=== PATIENT | female | born 1935 | race Caucasian/White ===

== ENCOUNTER → 2016-08-05 | Outpatient (CLI) | payer MEDICARE ==
[2016-08-05 13:14] LABS: Vitamin B12 949 pg/mL
== END | disposition home or self-care (01) ==
LOC: LABWHC1 11:14
PROVIDERS: ATTEND Psychiatry & Neurology Neurology
DX: R41.3 Other amnesia (principal)
CPT/HCPCS: 36415; 82607; 82746; 84439; 84443; 84481

== ENCOUNTER → 2016-10-10 | Outpatient (CLI) | payer MEDICARE | END | disposition home or self-care (01) | LOC: LABWHC1 14:52 | PROVIDERS: ATTEND Internal Medicine Cardiovascular Disease | DX: I48.0 Paroxysmal atrial fibrillation (principal) | CPT/HCPCS: 36415; 84443; 84450; 84460 ==

== ENCOUNTER → 2016-11-18 | Outpatient (CLI) | payer MEDICARE | END | disposition home or self-care (01) | LOC: LABWHC1 12:39 | PROVIDERS: ATTEND Internal Medicine Cardiovascular Disease | DX: E03.2 Hypothyroidism due to medicaments and other exogenous substances (principal) | CPT/HCPCS: 36415; 84439; 84481 ==

== ENCOUNTER → 2016-11-21 | Outpatient (CLI) | payer MEDICARE ==
--- NOTE | 2016-11-21 13:31 | XR ---
EXAMINATION TYPE: 3 views lumbar spine. AP view pelvis DATE OF EXAM: 11/21/2016 12:42 PM COMPARISON: Right hip radiographs 05/13/2016 HISTORY: 81-year-old female segmental and somatic dysfunction, pain from fall 3 months ago, pelvic an d lumbar pain. FINDINGS: Lumbar spine: There is mild levoconvex rotary curvature of the lumbar spine. Hypertrophic facet arthropathy mid to lower lumbar spine with grade 1 retrolistheses at L1-L2, L2-L3 and grade 1 anterolisthesis at L5-S1. Mild scattered endplate spondylosis. There is mild superior endplate compression deformity of L1 with a 15% overall height loss. Dense vascular calcifications within the aorta. Cholecystectomy clips. Pelvis: Mild marginal spurring at the right hip. Mild superolateral hip joint space narrowing at the left hip with suggestion of subchondral sclerosis and cystic change. Degenerative changes at the pubic symphy sis. SI joints appear symmetric and intact. There is osteopenia without displaced fracture. IMPRESSION: 1. Lumbar spine: Degenerated levoconvex rotary curvature of the lumbar spine. 2. Lumbar spine: Marked hypertrophic facet arthropathy mid to lower lumbar spine with grade 1 retroli stheses at L1-L2 and L2-L3 and grade 1 anterolisthesis at L5-S1. 3. Lumbar spine: Mild superior endplate compression deformity of L1 with 15% overall height loss. Thi s is age indeterminate and should be correlated clinically. 4. Pelvis: Mild left greater than right hip osteonecrosis. 5. Pelvis: Osteopenia without acute osseous abnormality seen.
== END | disposition home or self-care (01) ==
LOC: RADXRMAIN 12:25
PROVIDERS: ATTEND Chiropractor
DX: M43.17 Spondylolisthesis, lumbosacral region (principal); M46.96 Unspecified inflammatory spondylopathy, lumbar region; M85.88 Other specified disorders of bone density and structure, other site; M87.88 Other osteonecrosis, other site
CPT/HCPCS: 72100; 72170

== ENCOUNTER 2016-11-24 13:58 | Observation (INO) | payer MEDICARE ==
[~2016-11-24 13:58] MED LIST: AMIODARONE 100 MG TAB PO SCH
[2016-11-24] MEDS ORDERED: SODIUM CHLORIDE 0.9% 1,000 ML IV STA (14:18)
[2016-11-24] MEDS ORDERED: MORPHINE SULFATE 4 MG/ML SYRINGE IVP STA (14:18)
[2016-11-24] MEDS ORDERED: RX INFO: IV CONTRAST WAS GIVEN 1 EACH MISC MISCELLANE PRN (14:19)
--- NOTE | 2016-11-24 14:25 | ED ---
Abdominal Pain HPI - General Chief Complaint: Abdominal Pain Stated Complaint: Abd Pain Time Seen by Provider: 11/24/16 14:10 Source: patient, EMS Mode of arrival: EMS Limitations: no limitations - History of Present Illness Initial Comments: Patient is an 81-year-old female with history of A. fib on Eliquis and Digoxin, diabetes, hypertension, hyperlipidemia presenting with acute abdominal pain. Patient states about an hour prior to arrival she had upper abdominal pain that radiated into her chest. Patient rates pain 10 out of 10. She did not take anything for the pain. She tried to lay down but pain persisted. called EMS for transport. Patient denies ever having this pain before. She denies any associated fever or chills. Denies headache cough congestion. She denies any back pain or shortness breath. She denies nausea or vomiting or diarrhea. Patient states for the past. Patient having harder stools than normal. Patient still passing gas. Denies any dysuria. - Related Data Home Medications Medication Instructions Recorded Confirmed Latanoprost Ophth [Xalatan 0.005%] 1 drop BOTH EYES HS 06/17/14 11/24/16 Multivitamins, Thera [Multivitamin 1 tab PO DAILY 06/17/14 11/24/16 (formulary)] ALPRAZolam [Xanax] 0.25 mg PO HS PRN 05/13/15 11/24/16 Metoprolol Succinate [Toprol XL] 50 mg PO QAM 05/13/15 11/24/16 Nitroglycerin Sl Tabs [Nitrostat] 0.4 mg SUBLINGUAL Q5M PRN 05/13/15 11/24/16 Furosemide [Lasix] 40 mg PO DAILY 05/26/15 11/24/16 Spironolactone [Aldactone] 25 mg PO DAILY 05/26/15 11/24/16 rOPINIRole HCL [Requip] 2 mg PO BID 05/26/15 11/24/16 Amiodarone HCl [Pacerone] 100 mg PO DAILY 11/24/16 11/24/16 Apixaban [Eliquis] 2.5 mg PO BID 11/24/16 11/24/16 Cyanocobalamin (Vitamin B-12) 1,000 mcg PO SUTUTH 11/24/16 11/24/16 [Vitamin B-12] Cyanocobalamin (Vitamin B-12) 500 mcg PO SA 11/24/16 11/24/16 [Vitamin B-12] Fluticasone Nasal [place] [Flonase 2 spr EA NOSTRIL DAILY PRN 11/24/16 11/24/16 Nasal [place]] L.acidoph,Paracasei, B.lactis 1 cap PO HS 11/24/16 11/24/16 [Probiotic] Levothyroxine Sodium [Synthroid] 125 mcg PO DAILY 11/24/16 11/24/16 Rivastigmine Tartrate [Exelon] 6 mg PO BID 11/24/16 11/24/16 diphenhydrAMINE [Benadryl] 50 mg PO HS 11/24/16 11/24/16 Previous Rx's Medication Instructions Recorded Aspirin 81 mg PO DAILY chew 04/04/15 Sertraline [Zoloft] 100 mg PO QAM #30 tab 04/04/15 Allergies Allergy/AdvReac Type Severity Reaction Status Date / Time latex Allergy Swelling Verified 11/24/16 14:26 ELASTIC Allergy BINDS/CUTS Uncoded 11/24/16 14:02 INTO SKIN Review of Systems ROS Statement: Those systems with pertinent positive or pertinent negative responses have been documented in the HPI. Constitutional: No fever and no chills. HENT: No congestion, no rhinorrhea and no sore throat. Eyes: No discharge and no redness. Respiratory: No cough and no shortness of breath. Cardiovascular: +chest pain and no palpitations. Gastrointestinal: No nausea, no vomiting, +abdominal pain and no diarrhea. Genitourinary: No dysuria and no hematuria. Musculoskeletal: No back pain and no arthralgias. Skin: No pallor and no rash. Neurological: No dizziness and No headaches. ROS Other: All systems not noted in ROS Statement are negative. Past Medical History Past Medical History: Atrial Fibrillation, Coronary Artery Disease (CAD), Cancer , Dementia, Diabetes Mellitus, Eye Disorder, GI Bleed, Hyperlipidemia, Hypertension, Osteoarthritis (OA), Pulmonary Embolus (PE), Thyroid Disorder Additional Past Medical History / Comment(s): 03-26-15 ADMITTED WITH AFIB RVR. OTHER HX: AUG/2012 PULMONARY EMBOLISM, Feb UPPER GI BLEED TAKEN OFF COUMADIN, 1997 R breast ca TX WITH RADIATION. GLAUCOMA BILATERAL EYES, RLS. History of Any Multi-Drug Resistant Organisms: None Reported Past Surgical History: Breast Surgery, Cholecystectomy, Heart Catheterization, Orthopedic Surgery Additional Past Surgical History / Comment(s): CURRENTYLY HAVING DIFFICULTY SWALLOWING,1973 AND 1976 GANGLION CYST REMOVED L WRIST, 1976 R FOOT BONE SPUR REMOVAL, left heart catheterization in 2012 with 30-40% stenosis of the RCA and LAD, transesophageal echogram 2006, right breast biopsy 2009, cataract surgery 2009, last colonoscopy was in 2011. Past Anesthesia/Blood Transfusion Reactions: No Reported Reaction Additional Past Anesthesia/Blood Transfusion Reaction / Comment(s): PT HAD BLOOD TRANSFUSION WHEN SHE HAD A UPPER GI BLEED IN 2012. Past Psychological History: Depression Additional Psychological History / Comment(s): CURRENTLY STAYING WITH SISTER. PT LIVES IN OWN HOME WITH . PT IS NORMALLY ACTIVE AND INDEPENDENT. SHE TAKES CARE OF HERSELF AND HER HOME AND DRIVES A CAR. Smoking Status: Former smoker Past Alcohol Use History: None Reported Additional Past Alcohol Use History / Comment(s): started smoking at age 23 smoked 1/2 ppd quit 1983 Past Drug Use History: None Reported - Past Family History Father Family Medical History: Coronary Artery Disease (CAD), Myocardial Infarction (MS ) Additional Family Medical History / Comment(s): FATHER AT AGE 72 OF MS. Mother Family Medical History: Cancer Additional Family Medical History / Comment(s): MOTHER AT AGE 76 OF UTERINE CANCER. Sister(s) Family Medical History: GERD/Reflux Brother(s) Family Medical History: Diabetes Mellitus Daughter(s) Family Medical History: No Reported History Son(s) Family Medical History: No Reported History General Exam - General Exam Comments Initial Comments: Constitutional: Patient appears well-developed and well-nourished. Mild distress. Head: Normocephalic and atraumatic. Eyes: Conjunctivae and EOM are normal. Right eye exhibits no discharge. Left eye exhibits no discharge. No scleral icterus. Neck: Normal range of motion. Neck supple. Cardiovascular: Normal rate and regular rhythm. No murmur heard. Pulmonary/Chest: Effort normal and breath sounds normal. No respiratory distress. No wheezes. Abdominal: Soft. +distension. Mild epigastric tenderness. There is no rebound and no guarding. Musculoskeletal: Normal range of motion. No edema or tenderness. Neurological: Patient alert and oriented to person, place, and time. Skin: Skin is warm and dry. Not diaphoretic. Nursing notes and vitals reviewed. Limitations: no limitations Course Vital Signs 11/24/16 11/24/16 11/24/16 14:02 15:16 15:44 Temperature 99.6 F Pulse Rate 61 68 57 L Respiratory 20 16 16 Rate Blood Pressure 181/77 198/79 147/67 O2 Sat by Pulse 99 96 94 L Oximetry 11/24/16 16:59 Temperature Pulse Rate 59 L Respiratory 16 Rate Blood Pressure 162/70 O2 Sat by Pulse 100 Oximetry - Reevaluation(s) Reevaluation #1: 11/24/16 16:08 Notified of patient's having worsening substernal nonradiating chest pain. Patient is having nausea without vomiting. We'll order a repeat EKG. Patient' s abdominal workup unremarkable more concerning for ACS. Reevaluation #2: 11/24/16 16:17 EKG done showing no ST or T-wave changes. Rate 59. Sinus bradycardia. No ST-T wave changes. CO internal normal . QRS interval normal. QTc duration 496ms. Medical Decision Making - Medical Decision Making Patient's a 81-year-old female with history of diabetes, A. fib, hypertension, hyperlipidemia presenting with chest pain/abdominal pain. EKG unremarkable 2. Troponin negative. Patient was given aspirin. Abdominal workup unremarkable with negative CBC, CMP, lipase, lactic acid, abd x-ray and abdominal CT. Patient with intermittent episodic chest pain. Patient with a high HEART score. Patient was resting comfortably in bed. Course of stay improved. Denies pain. Discussed physical exam and diagnostic tests with patient. Questions answered and patient is agreeable to staying in the hospital. Discussed H&P and pertinent diagnostic tests with admitting physician who agrees with plan and accepts admission of patient. - Lab Data Result diagrams: 11/24/16 14:25 11/24/16 14:25 Lab Results 11/24/16 11/24/16 11/24/16 Range/Units 14:25 14:25 14:25 WBC 10.6 (3.8-10.6) k/uL RBC 4.09 (3.80-5.40) m/uL Hgb 11.8 (11.4-16.0) gm/dL Hct 36.0 (34.0-46.0) % MCV 88.0 (80.0-100.0) fL MCH 28.9 (25.0-35.0) pg MCHC 32.8 (31.0-37.0) g/dL RDW 17.9 H (11.5-15.5) % Plt Count 300 (150-450) k/uL Neutrophils % 87 % Lymphocytes % 8 % Monocytes % 3 % Eosinophils % 1 % Basophils % 0 % Neutrophils # 9.3 H (1.3-7.7) k/uL Lymphocytes # 0.8 L (1.0-4.8) k/uL Monocytes # 0.3 (0-1.0) k/uL Eosinophils # 0.1 (0-0.7) k/uL Basophils # 0.1 (0-0.2) k/uL Anisocytosis Slight PT (9.0-12.0) sec INR (<1.1) APTT (22.0-30.0) sec Sodium 142 (137-145) mmol/L Potassium 4.2 (3.5-5.1) mmol/L Chloride 107 (98-107) mmol/L Carbon Dioxide 26 (22-30) mmol/L Anion Gap 9 mmol/L BUN 31 H (7-17) mg/dL Creatinine 1.33 H (0.52-1.04) mg/dL Est GFR (MDRD) Af Amer 47 (>60 ml/min/1.73 sqM) Est GFR (MDRD) Non-Af 38 (>60 ml/min/1.73 sqM) Glucose 130 H (74-99) mg/dL Plasma Lactic Acid Paulo (0.7-2.0) mmol/L Calcium 8.9 (8.4-10.2) mg/dL Magnesium 2.2 (1.6-2.3) mg/dL Total Bilirubin 0.7 (0.2-1.3) mg/dL AST 73 H (14-36) U/L ALT 46 (9-52) U/L Alkaline Phosphatase 123 (38-126) U/L Troponin I (0.000-0.034) ng/mL Total Protein 7.5 (6.3-8.2) g/dL Albumin 4.3 (3.5-5.0) g/dL Lipase 181 (23-300) U/L Urine Color Urine Appearance (Clear) Urine pH (5.0-8.0) Ur Specific [place] (1.001-1.035) Urine Protein (Negative) Urine Glucose (UA) (Negative) Urine Ketones (Negative) Urine Blood (Negative) Urine Nitrite (Negative) Urine Bilirubin (Negative) Urine Urobilinogen (<2.0) mg/dL Ur Leukocyte Esterase (Negative) Urine WBC (0-5) /hpf Hyaline Casts (0-2) /lpf Urine Mucus (None) /hpf Digoxin <0.4 ng/mL Blood Type O Positive Blood Type Recheck No Antibody Screen NEGATIVE Spec Expiration Date 11/27/2016 - 232411/24/16 11/24/16 11/24/16 Range/Units 14:25 14:25 14:25 WBC (3.8-10.6) k/uL RBC (3.80-5.40) m/uL Hgb (11.4-16.0) gm/dL Hct (34.0-46.0) % MCV (80.0-100.0) fL MCH (25.0-35.0) pg MCHC (31.0-37.0) g/dL RDW (11.5-15.5) % Plt Count (150-450) k/uL Neutrophils % % Lymphocytes % % Monocytes % % Eosinophils % % Basophils % % Neutrophils # (1.3-7.7) k/uL Lymphocytes # (1.0-4.8) k/uL Monocytes # (0-1.0) k/uL Eosinophils # (0-0.7) k/uL Basophils # (0-0.2) k/uL Anisocytosis PT 10.7 (9.0-12.0) sec INR 1.1 (<1.1) APTT 22.9 (22.0-30.0) sec Sodium (137-145) mmol/L Potassium (3.5-5.1) mmol/L Chloride (98-107) mmol/L Carbon Dioxide (22-30) mmol/L Anion Gap mmol/L BUN (7-17) mg/dL Creatinine (0.52-1.04) mg/dL Est GFR (MDRD) Af Amer (>60 ml/min/1.73 sqM) Est GFR (MDRD) Non-Af (>60 ml/min/1.73 sqM) Glucose (74-99) mg/dL Plasma Lactic Acid Paulo 1.1 (0.7-2.0) mmol/L Calcium (8.4-10.2) mg/dL Magnesium (1.6-2.3) mg/dL Total Bilirubin (0.2-1.3) mg/dL AST (14-36) U/L ALT (9-52) U/L Alkaline Phosphatase (38-126) U/L Troponin I <0.012 (0.000-0.034) ng/mL Total Protein (6.3-8.2) g/dL Albumin (3.5-5.0) g/dL Lipase (23-300) U/L Urine Color Urine Appearance (Clear) Urine pH (5.0-8.0) Ur Specific [place] (1.001-1.035) Urine Protein (Negative) Urine Glucose (UA) (Negative) Urine Ketones (Negative) Urine Blood (Negative) Urine Nitrite (Negative) Urine Bilirubin (Negative) Urine Urobilinogen (<2.0) mg/dL Ur Leukocyte Esterase (Negative) Urine WBC (0-5) /hpf Hyaline Casts (0-2) /lpf Urine Mucus (None) /hpf Digoxin ng/mL Blood Type Blood Type Recheck Antibody Screen Spec Expiration Date 11/24/16 Range/Units 15:15 WBC (3.8-10.6) k/uL RBC (3.80-5.40) m/uL Hgb (11.4-16.0) gm/dL Hct (34.0-46.0) % MCV (80.0-100.0) fL MCH (25.0-35.0) pg MCHC (31.0-37.0) g/dL RDW (11.5-15.5) % Plt Count (150-450) k/uL Neutrophils % % Lymphocytes % % Monocytes % % Eosinophils % % Basophils % % Neutrophils # (1.3-7.7) k/uL Lymphocytes # (1.0-4.8) k/uL Monocytes # (0-1.0) k/uL Eosinophils # (0-0.7) k/uL Basophils # (0-0.2) k/uL Anisocytosis PT (9.0-12.0) sec INR (<1.1) APTT (22.0-30.0) sec Sodium (137-145) mmol/L Potassium (3.5-5.1) mmol/L Chloride (98-107) mmol/L Carbon Dioxide (22-30) mmol/L Anion Gap mmol/L BUN (7-17) mg/dL Creatinine (0.52-1.04) mg/dL Est GFR (MDRD) Af Amer (>60 ml/min/1.73 sqM) Est GFR (MDRD) Non-Af (>60 ml/min/1.73 sqM) Glucose (74-99) mg/dL Plasma Lactic Acid Paulo (0.7-2.0) mmol/L Calcium (8.4-10.2) mg/dL Magnesium (1.6-2.3) mg/dL Total Bilirubin (0.2-1.3) mg/dL AST (14-36) U/L ALT (9-52) U/L Alkaline Phosphatase (38-126) U/L Troponin I (0.000-0.034) ng/mL Total Protein (6.3-8.2) g/dL Albumin (3.5-5.0) g/dL Lipase (23-300) U/L Urine Color Yellow Urine Appearance Clear (Clear) Urine pH 6.5 (5.0-8.0) Ur Specific [place] 1.012 (1.001-1.035) Urine Protein Negative (Negative) Urine Glucose (UA) Negative (Negative) Urine Ketones Negative (Negative) Urine Blood Negative (Negative) Urine Nitrite Negative (Negative) Urine Bilirubin Negative (Negative) Urine Urobilinogen <2.0 (<2.0) mg/dL Ur Leukocyte Esterase Small H (Negative) Urine WBC 8 H (0-5) /hpf Hyaline Casts 1 (0-2) /lpf Urine Mucus Rare H (None) /hpf Digoxin ng/mL Blood Type Blood Type Recheck Antibody Screen Spec Expiration Date 11/24/16 14:24 [address]R. No ST-T wave changes. CO internal normal . QRS interval normal. QTc duration 511ms Disposition Clinical Impression: Chest pain, Abdominal pain Disposition: ADMITTED IP TO THIS HOSP Condition: Good
[2016-11-24 14:41] LABS: Anisocytosis Slight; Basophils # (A) 0.1 k/uL (0-0.2); Basophils % (A) 0 %; CH 28.5; CHCM 32.5; Eosinophils # (A) 0.1 k/uL (0-0.7); Eosinophils % (A) 1 %; HDW 2.98; HGB 11.8 gm/dL (11.4-16.0); Luc # (Auto) 0.13; Luc % (Auto) 1; Lymphocytes # (A) 0.8 k/uL (1.0-4.8); Lymphocytes % (A) 8 %; MCH 28.9 pg (25.0-35.0); MCHC 32.8 g/dL (31.0-37.0); Mean Platelet Volume 7.9; Monocytes # (A) 0.3 k/uL (0-1.0); Monocytes % (A) 3 %; Neutrophils # (A) 9.3 k/uL (1.3-7.7); Neutrophils % (A) 87 %; RBC 4.09 m/uL (3.80-5.40); RDW 17.9 % (11.5-15.5); WBC 10.6 k/uL (3.8-10.6); WBC (Perox) 10.87
[2016-11-24 14:49] LABS: INR 1.1 (<1.1); Partial Thromboplastin Time 22.9 sec (22.0-30.0); Prothrombin Time 10.7 sec (9.0-12.0)
[2016-11-24 14:56] LABS: ALT 46 U/L (9-52); AST 73 U/L (14-36); Alkaline Phosphatase 123 U/L (38-126); Anion Gap 9 mmol/L; Blood Urea Nitrogen 31 mg/dL (7-17); Calcium 8.9 mg/dL (8.4-10.2); Carbon Dioxide 26 mmol/L (22-30); Chloride 107 mmol/L (98-107); Digoxin <0.4 ng/mL; Glucose 130 mg/dL (74-99); Magnesium 2.2 mg/dL (1.6-2.3); Non-African American GFR(MDRD) 38 (>60 ml/min/1.73 sqM); Potassium 4.2 mmol/L (3.5-5.1); Sodium 142 mmol/L (137-145); Total Bilirubin 0.7 mg/dL (0.2-1.3); Total Protein 7.5 g/dL (6.3-8.2)
--- NOTE | 2016-11-24 15:18 | XR ---
EXAMINATION TYPE: XR abdomen acute w cxr DATE OF EXAM: 11/24/2016 3:00 PM COMPARISON: NONE HISTORY: Pain nausea TECHNIQUE: Acute abdominal series with upright and supine views of the abdomen and supplemented with a frontal chest. FINDINGS: No suspicious infiltrates are evident. No free air is under the diaphragm. Normal colonic b owel gas is present. Psoas margins are normal. Organomegaly is not evident. Cholecystectomy clips are present. Scoliosis within the lumbar spine. IMPRESSION: 1. No suspicious changes acute abdominal series
[2016-11-24 15:25] LABS: Appearance,Urine Clear (Clear); Bilirubin,Urine Negative (Negative); Glucose,Urine (UA) Negative (Negative); Ketones,Urine Negative (Negative); Leukocyte Esterase,Urine Small (Negative); Mucus,Urine Rare /hpf; Nitrite,Urine Negative (Negative); PH, Urine 6.5 (5.0-8.0); Particle Count 774; Protein,Urine Negative (Negative); Specific Gravity,Urine 1.012 (1.001-1.035); UA Billing (MACRO vs. MICRO) MICRO; Urobilinogen,Urine <2.0 mg/dL (<2.0); WBC,Urine 8 /hpf (0-5)
[2016-11-24] MEDS ORDERED: METOCLOPRAMIDE 5 MG/ML 2 ML VIAL IVP STA (15:53)
[2016-11-24] MEDS ORDERED: diphenhydrAMINE 50 MG/ML 1 ML VIAL IVP STA (15:53)
--- NOTE | 2016-11-24 16:06 | CT ---
EXAMINATION TYPE: CT abdomen pelvis wo con DATE OF EXAM: 11/24/2016 3:09 PM COMPARISON: NONE INDICATION: PT STATES OF ABDOMINAL PAIN. DLP: 942.0 mGycm, Automated exposure control for dose reduction was used. CONTRAST: 0 mL of Omnipaque 300. Study performed without Oral Contrast TECHNIQUE: Axial images were obtained from above the diaphragm to the pubic rami in the axial plane a t 5 mm thick sections. Reconstructed images are reviewed on the computer in the coronal plane. FINDINGS: Limited CT sections are obtained the lung bases. The lung bases are clear. Coronary artery calcific ation is noted. Vascular calcifications within the distal aorta. Hiatal hernia is present. CT ABDOMEN: Liver: Normal Spleen: Normal Pancreas: Normal Adrenal glands: The adrenal glands are normal. Gallbladder: Surgically absent. The common bile duct entering the head of the pancreas is prominent m easuring 1.5 cm. Normal is less than 1.0 cm. No obstructing stone is identified. No pancreatic duct d ilatation is evident. Kidneys: No masses are evident. No hydronephrosis is present. No cysts are present. There is malro tation of the right kidney. Aorta: Vascular calcification is within the aorta. Inferior vena cava: Normal. CT PELVIS: Diverticular changes are within the ascending and descending colon. Study is without oral contrast li miting the evaluation. Sigmoid colon contains multiple diverticuli. Appendix: Not visualized. No suspicious tubular structures inflammatory changes or secondary signs fo r acute appendicitis are evident. Urinary bladder: Normal. Genitourinary structures: Uterus and ovaries are unremarkable. No free fluid is within the pelvis. Osseous structures: No suspicious lytic or sclerotic lesions. Facet degenerative changes are within t he lumbar spine. IMPRESSIONS: 1. Prominent common bile duct. 2. Diverticulosis without acute diverticulitis.
[2016-11-24] MEDS ORDERED: ASPIRIN 81 MG CHEW PO STA (16:07)
[2016-11-24] MEDS ORDERED: ACETAMINOPHEN TAB 325 MG TAB PO PRN (16:24)
[2016-11-24] MEDS ORDERED: IBUPROFEN 400 MG TAB PO PRN (16:24)
[2016-11-24] MEDS ORDERED: NALOXONE 0.4 MG/ML 1 ML VIAL IV PRN (16:24)
[2016-11-24] MEDS ORDERED: MORPHINE SULFATE 4 MG/ML SYRINGE IV PRN (16:24)
[2016-11-24] MEDS ORDERED: ALPRAZolam 0.25 MG TAB PO PRN (16:27)
[2016-11-24] MEDS ORDERED: NITROGLYCERIN SL TABS 0.4 MG TAB SUBLINGUAL PRN (16:27)
[2016-11-24] MEDS: SPIRONOLACTONE 25 MG TAB PO SCH (19:08)
[2016-11-24] MEDS: SERTRALINE 100 MG TAB PO SCH (19:08)
[2016-11-24] MEDS: METOPROLOL SUCCINATE (ER) 50 MG TAB.ER.24H PO SCH (19:09)
[2016-11-24] MEDS ORDERED: diphenhydrAMINE 50 MG CAP PO SCH (21:00)
[2016-11-24] MEDS: APIXABAN 2.5 MG TABLET PO SCH (21:10)
[2016-11-24 23:43] VITALS: RESP 18
[2016-11-25] MEDS ORDERED: LEVOTHYROXINE 125 MCG TAB PO SCH (06:30)
[2016-11-25 07:31] LABS: Glucose,Whole Blood 110 mg/dL (75-99)
[2016-11-25 08:42] LABS: Anisocytosis Slight; Basophils % (A) 0 %; CH 28.7; CHCM 31.5; Eosinophils # (A) 0.1 k/uL (0-0.7); Eosinophils % (A) 1 %; HDW 2.89; HGB 10.3 gm/dL (11.4-16.0); Hypochromasia Slight; Luc # (Auto) 0.11; Luc % (Auto) 2; Lymphocytes % (A) 13 %; MCH 28.7 pg (25.0-35.0); MCHC 31.3 g/dL (31.0-37.0); MCV 91.5 fL (80.0-100.0); Mean Platelet Volume 8.2; Monocytes # (A) 0.3 k/uL (0-1.0); Monocytes % (A) 4 %; Neutrophils # (A) 5.7 k/uL (1.3-7.7); Neutrophils % (A) 80 %; RBC 3.61 m/uL (3.80-5.40); RDW 17.9 % (11.5-15.5); WBC 7.2 k/uL (3.8-10.6)
[2016-11-25 08:51] LABS: Calcium 8.7 mg/dL (8.4-10.2); Potassium 4.2 mmol/L (3.5-5.1)
[2016-11-25] MEDS ORDERED: FUROSEMIDE 40 MG TAB PO SCH (09:00)
[2016-11-25] MEDS ORDERED: AMIODARONE 100 MG TAB PO SCH (09:00)
[2016-11-25] MEDS ORDERED: ASPIRIN 81 MG CHEW PO SCH (09:00)
--- NOTE | 2016-11-25 09:51 | P.CRDCN ---
History of Present Illness Consult date: 11/25/16 History of present illness: This is a 81-year-old female This is a 81-year-old female with history of mild coronary artery disease, moderate mitral regurgitation and severe tricuspid regurgitation who was admitted to the hospital now with complaints of severe pain that started in the lower abdomen with some radiation to the epigastrium and chest. Patient has had some hip problem on the right side and uses a walker for walking. She thought that pain could be related to her hip problem but continued to have this abdominal pain. Finally patient came to the hospital. The pain apparently was continuous. She was mildly nauseated but no vomiting or diarrhea. Pain lasts about 2-3 hours. She was treated in the emergency room with improvement of pain. Since then patient has been stable. Her EKG showed sinus rhythm with nonspecific ST-T changes which are chronic. Cardiac enzymes are negative. Computed tomography scan of the abdomen was done which showed some diverticulosis. Her creatinine was 1.3 and admission and went up to 1.5 today. This could be related to contrast used for computed tomography scan. Close monitoring of the creatinine to be constricted. Her hemoglobin also dropped, but could be from dilution. One of the liver enzymes are slightly high. From cardiac standpoint. Patient doesn't need any further evaluation at this time. If her general condition is stable and his creatinine stable, patient could be discharged home. Follow-up with Dr. Huber as an outpatient. Review of Systems As per the chart Past Medical History Past Medical History: Atrial Fibrillation, Coronary Artery Disease (CAD), Cancer , Dementia, Diabetes Mellitus, Eye Disorder, GI Bleed, Hyperlipidemia, Hypertension, Osteoarthritis (OA), Pulmonary Embolus (PE), Thyroid Disorder Additional Past Medical History / Comment(s): 03-26-15 ADMITTED WITH AFIB RVR. OTHER HX: AUG/SEP. 2012 PULMONARY EMBOLISM, Feb UPPER GI BLEED TAKEN OFF COUMADIN, 1997 R breast ca TX WITH RADIATION. GLAUCOMA BILATERAL EYES, RLS. hypothyroid. History of Any Multi-Drug Resistant Organisms: None Reported Past Surgical History: Breast Surgery, Cholecystectomy, Heart Catheterization, Orthopedic Surgery Additional Past Surgical History / Comment(s): CURRENTYLY HAVING DIFFICULTY SWALLOWING,1973 AND 1976 GANGLION CYST REMOVED L WRIST, 1976 R FOOT BONE SPUR REMOVAL, left heart catheterization in 2012 with 30-40% stenosis of the RCA and LAD, transesophageal echogram 2006, right breast biopsy 2009, cataract surgery 2009, last colonoscopy was in 2011. Past Anesthesia/Blood Transfusion Reactions: No Reported Reaction Additional Past Anesthesia/Blood Transfusion Reaction / Comment(s): PT HAD BLOOD TRANSFUSION WHEN SHE HAD A UPPER GI BLEED IN 2012. Past Psychological History: Depression Additional Psychological History / Comment(s): CURRENTLY STAYING WITH SISTER. PT LIVES IN OWN HOME WITH . PT IS NORMALLY ACTIVE AND INDEPENDENT. SHE TAKES CARE OF HERSELF AND HER HOME AND DRIVES A CAR. Smoking Status: Former smoker Past Alcohol Use History: None Reported Additional Past Alcohol Use History / Comment(s): started smoking at age 23 smoked 1/2 ppd quit 1983 Past Drug Use History: None Reported - Past Family History Father Family Medical History: Coronary Artery Disease (CAD), Myocardial Infarction ([place] ) Additional Family Medical History / Comment(s): FATHER AT AGE 72 OF [place]. Mother Family Medical History: Cancer Additional Family Medical History / Comment(s): MOTHER AT AGE 76 OF UTERINE CANCER. Sister(s) Family Medical History: GERD/Reflux Brother(s) Family Medical History: Diabetes Mellitus Daughter(s) Family Medical History: No Reported History Son(s) Family Medical History: No Reported History Medications and Allergies Home Medications Medication Instructions Recorded Confirmed Type Latanoprost Ophth [Xalatan 0.005%] 1 drop BOTH EYES HS 06/17/14 11/24/16 History Multivitamins, Thera [Multivitamin 1 tab PO DAILY 06/17/14 11/24/16 History (formulary)] ALPRAZolam [Xanax] 0.25 mg PO HS PRN 05/13/15 11/24/16 History Metoprolol Succinate [Toprol XL] 50 mg PO QAM 05/13/15 11/24/16 History Nitroglycerin Sl Tabs [Nitrostat] 0.4 mg SUBLINGUAL Q5M PRN 05/13/15 11/24/16 History Furosemide [Lasix] 40 mg PO DAILY 05/26/15 11/24/16 History Spironolactone [Aldactone] 25 mg PO DAILY 05/26/15 11/24/16 History rOPINIRole HCL [Requip] 2 mg PO BID 05/26/15 11/24/16 History Amiodarone HCl [Pacerone] 100 mg PO DAILY 11/24/16 11/24/16 History Apixaban [Eliquis] 2.5 mg PO BID 11/24/16 11/24/16 History Cyanocobalamin (Vitamin B-12) 1,000 mcg PO SUTUTH 11/24/16 11/24/16 History [Vitamin B-12] Cyanocobalamin (Vitamin B-12) 500 mcg PO SA 11/24/16 11/24/16 History [Vitamin B-12] Fluticasone Nasal [place] [Flonase 2 spr EA NOSTRIL DAILY PRN 11/24/16 11/24/16 History Nasal [place]] L.acidoph,Paracasei, B.lactis 1 cap PO HS 11/24/16 11/24/16 History [Probiotic] Levothyroxine Sodium [Synthroid] 125 mcg PO DAILY 11/24/16 11/24/16 History Rivastigmine Tartrate [Exelon] 6 mg PO BID 11/24/16 11/24/16 History diphenhydrAMINE [Benadryl] 50 mg PO HS 11/24/16 11/24/16 History Allergies Allergy/AdvReac Type Severity Reaction Status Date / Time ELASTIC Allergy BINDS/CUTS Uncoded 11/24/16 14:02 INTO SKIN Physical Exam Vitals: Vital Signs Temp Pulse Pulse Pulse Resp BP BP 11/25/16 08:00 98.2 F 69 18 11/25/16 03:07 98.6 F 70 18 140/63 11/24/16 23:39 98.3 F 69 18 105/48 11/24/16 20:00 97.5 F L 65 16 146/64 11/24/16 18:44 66 18 11/24/16 17:32 97.7 F 66 18 11/24/16 16:59 59 L 16 162/70 BP Pulse Ox 11/25/16 08:00 154/51 95 11/25/16 03:07 94 L 11/24/16 23:39 97 11/24/16 20:00 94 L 11/24/16 18:44 11/24/16 17:32 142/80 98 11/24/16 16:59 100 Intake and Output 11/24/16 11/25/16 11/25/16 22:59 06:59 14:59 Intake Total 240 Balance 240 Intake: Oral 240 Other: Voiding Method Toilet Toilet Toilet # Voids 1 Weight 67 kg GENERAL EXAM: Patient is alert and oriented and doesn't appear to be in any acute distress. Poor memory HEENT: Normocephalic. Normal reaction of pupils, equal size, normal range of extraocular motion. No erythema or exudates in the throat. NECK: No masses, no nuchal rigidity. CHEST: No chest wall deformity. LUNGS: Equal air entry with no crackles or wheeze. HEART: S1 and S2 normal with no audible mumurs or gallops. Regular rhythm, femorals equal on both sides.. ABDOMEN: No hepatosplenomegaly, normal bowel sounds, no guarding or rigidity. SKIN: No rashes CENTRAL NERVOUS SYSTEM: No focal deficits. EXTREMITIES: No cyanosis, clubbing or edema. Results 11/25/16 02:54 11/25/16 02:54 Cardiac Enzymes 11/24/16 11/25/16 Range/Units 20:37 02:54 Troponin I <0.012 <0.012 (0.000-0.034) ng/mL CBC 11/25/16 Range/Units 02:54 WBC 7.2 (3.8-10.6) k/uL RBC 3.61 L (3.80-5.40) m/uL Hgb 10.3 L (11.4-16.0) gm/dL Hct 33.0 L (34.0-46.0) % Plt Count 255 (150-450) k/uL Comprehensive Metabolic Panel 11/25/16 Range/Units 02:54 Sodium 141 (137-145) mmol/L Potassium 4.2 (3.5-5.1) mmol/L Chloride 107 (98-107) mmol/L Carbon Dioxide 26 (22-30) mmol/L BUN 30 H (7-17) mg/dL Creatinine 1.54 H (0.52-1.04) mg/dL Glucose 87 (74-99) mg/dL Calcium 8.7 (8.4-10.2) mg/dL Current Medications Generic Name Dose Route Start Last Admin Trade Name Freq PRN Reason Stop Dose Admin Acetaminophen 650 mg 11/24/16 16:24 Tylenol Tab PO Q6HR PRN Mild Pain or Fever > 100.5 Alprazolam 0.25 mg 11/24/16 16:27 Xanax PO HS PRN Anxiety Amiodarone HCl 100 mg 11/25/16 09:00 Cordarone PO DAILY [facility] Apixaban 2.5 mg 11/24/16 21:00 11/24/16 21:10 Eliquis PO 2.5 mg BID DONNA Administration Aspirin 81 mg 11/25/16 09:00 Aspirin PO DAILY [facility] Diphenhydramine HCl 50 mg 11/24/16 21:00 11/24/16 21:10 Benadryl PO 50 mg HS DONNA Administration Furosemide 40 mg 11/25/16 09:00 Lasix PO DAILY DONNA Ibuprofen 400 mg 11/24/16 16:24 Motrin PO Q6HR PRN Mild Pain or Fever > 100.5 Levothyroxine Sodium 125 mcg 11/25/16 06:30 11/25/16 06:06 Synthroid PO 125 mcg DAILY@0630 [facility] Administration Metoprolol Succinate 50 mg 11/24/16 17:30 11/24/16 19:09 Toprol Xl PO Not Given QAM [facility] Miscellaneous Information 1 each 11/24/16 14:19 11/24/16 16:07 Rx Info: Iv Contrast Was Given MISCELLANE 11/26/16 14:20 1 each DAILY PRN Administration Per Protocol Morphine Sulfate 4 mg 11/24/16 16:24 Morphine Sulfate (Inj) IV Q4HR PRN Severe Pain Naloxone HCl 0.2 mg 11/24/16 16:24 Narcan IV Q2M PRN Opioid Reversal Nitroglycerin 0.4 mg 11/24/16 16:27 Nitrostat SUBLINGUAL Q5M PRN Chest Pain Ropinirole HCl 2 mg 11/24/16 21:00 11/24/16 21:10 Requip PO 2 mg BID [facility] Administration Sertraline HCl 100 mg 11/24/16 17:30 11/24/16 19:08 Zoloft PO Not Given QAM [facility] Spironolactone 25 mg 11/24/16 17:30 11/24/16 19:08 Aldactone PO Not Given DAILY DONNA Intake and Output 11/24/16 11/25/16 11/25/16 22:59 06:59 14:59 Intake Total 240 Balance 240 Intake: Oral 240 Other: Voiding Method Toilet Toilet Toilet # Voids 1 Weight 67 kg 11/25/16 02:54 11/25/16 02:54 EKG Interpretations (text) Sinus rhythm with chronic ST-T changes Assessment and Plan (1) Valvular heart disease Status: Acute (2) Abdominal pain Status: Acute (3) Atrial fibrillation Status: Acute (4) Diabetes mellitus Status: Acute Plan: This patient is admitted with mostly abdominal pain. Cardiac enzymes and EKGs are not suggestive of an acute coronary syndrome. Her creatinine has gone up and that could be related to contrast use for computed tomography scan. This needs to be closely monitored. Follow-up with Dr. Huber upon discharge
[2016-11-25] MEDS: METOPROLOL SUCCINATE (ER) 50 MG TAB.ER.24H PO SCH (10:27)
[2016-11-25] MEDS: SPIRONOLACTONE 25 MG TAB PO SCH (10:28)
[2016-11-25] MEDS: SERTRALINE 100 MG TAB PO SCH (10:28)
[2016-11-25] MEDS: APIXABAN 2.5 MG TABLET PO SCH (10:28)
[2016-11-25] MEDS ORDERED: SODIUM CHLORIDE 0.9% 250 ML IV ONE (12:34)
[2016-11-25 13:10] VITALS: BP 117/60; PULSE 59; TEMP 97.5
--- NOTE | 2016-11-25 15:33 | P.HPIM ---
History of Present Illness H&P Date: 11/25/16 Chief Complaint: Abdomen and chest pain This is a medical H&P and discharge summary combined: Patient is a 81-year-old female, patient of Dr. Strange in the outpatient setting, with medical history significant for atrial fibrillation, diabetes mellitus type 2, chronic kidney disease, coronary artery disease, bilateral pulmonary emboli, hypertension, hypothyroidism, hyperlipidemia, vascular dementia, and breast cancer status post lumpectomy as well as radiation therapy. Patient presented to the emergency department with complaints of acute upper abdominal pain radiating into her chest associated with nausea but no vomiting. No history of recent illness, fevers, chills, shortness of breath, back pain, or diarrhea. Patient reports occasional constipation. Abdominal workup essentially negative with a negative CBC, CMP, lipase, lactic acid, abdominal x-ray, abdominal CT. Troponins negative 3. EKG without evidence of acute ischemia. Patient was admitted for observation with consult to cardiology service. Patient was evaluated by cardiology who didn't feel that patient needed any further cardiac workup. Upon examination, patient denies any abdominal pain. Patient denies nausea, vomiting, chills, shortness of breath, or chest pain. Patient is urinating without difficulty. Afebrile. Vital signs stable. Creatinine this morning 1.54 from 1.33 yesterday. Past Medical History Past Medical History: Atrial Fibrillation, Coronary Artery Disease (CAD), Cancer , Dementia, Diabetes Mellitus, Eye Disorder, GI Bleed, Hyperlipidemia, Hypertension, Osteoarthritis (OA), Pulmonary Embolus (PE), Thyroid Disorder Additional Past Medical History / Comment(s): 03-26-15 ADMITTED WITH AFIB RVR. OTHER HX: AUG/2012 PULMONARY EMBOLISM, Feb UPPER GI BLEED TAKEN OFF COUMADIN, 1997 R breast ca TX WITH RADIATION. GLAUCOMA BILATERAL EYES, RLS. hypothyroid. History of Any Multi-Drug Resistant Organisms: None Reported Past Surgical History: Breast Surgery, Cholecystectomy, Heart Catheterization, Orthopedic Surgery Additional Past Surgical History / Comment(s): CURRENTYLY HAVING DIFFICULTY SWALLOWING,1973 AND 1976 GANGLION CYST REMOVED L WRIST, 1976 R FOOT BONE SPUR REMOVAL, left heart catheterization in 2012 with 30-40% stenosis of the RCA and LAD, transesophageal echogram 2006, right breast biopsy 2009, cataract surgery 2009, last colonoscopy was in 2011. Past Anesthesia/Blood Transfusion Reactions: No Reported Reaction Additional Past Anesthesia/Blood Transfusion Reaction / Comment(s): PT HAD BLOOD TRANSFUSION WHEN SHE HAD A UPPER GI BLEED IN 2012. Past Psychological History: Depression Additional Psychological History / Comment(s): CURRENTLY STAYING WITH SISTER. PT LIVES IN OWN HOME WITH . PT IS NORMALLY ACTIVE AND INDEPENDENT. SHE TAKES CARE OF HERSELF AND HER HOME AND DRIVES A CAR. Smoking Status: Former smoker Past Alcohol Use History: None Reported Additional Past Alcohol Use History / Comment(s): started smoking at age 23 smoked 1/2 ppd quit 1983 Past Drug Use History: None Reported - Past Family History Father Family Medical History: Coronary Artery Disease (CAD), Myocardial Infarction ([place] ) Additional Family Medical History / Comment(s): FATHER AT AGE 72 OF [place]. Mother Family Medical History: Cancer Additional Family Medical History / Comment(s): MOTHER AT AGE 76 OF UTERINE CANCER. Sister(s) Family Medical History: GERD/Reflux Brother(s) Family Medical History: Diabetes Mellitus Daughter(s) Family Medical History: No Reported History Son(s) Family Medical History: No Reported History Medications and Allergies Home Medications Medication Instructions Recorded Confirmed Type Latanoprost Ophth [Xalatan 0.005%] 1 drop BOTH EYES HS 06/17/14 11/24/16 History Multivitamins, Thera [Multivitamin 1 tab PO DAILY 06/17/14 11/24/16 History (formulary)] ALPRAZolam [Xanax] 0.25 mg PO HS PRN 05/13/15 11/24/16 History Metoprolol Succinate [Toprol XL] 50 mg PO QAM 05/13/15 11/24/16 History Nitroglycerin Sl Tabs [Nitrostat] 0.4 mg SUBLINGUAL Q5M PRN 05/13/15 11/24/16 History Furosemide [Lasix] 40 mg PO DAILY 05/26/15 11/24/16 History Spironolactone [Aldactone] 25 mg PO DAILY 05/26/15 11/24/16 History rOPINIRole HCL [Requip] 2 mg PO BID 05/26/15 11/24/16 History Amiodarone HCl [Pacerone] 100 mg PO DAILY 11/24/16 11/24/16 History Apixaban [Eliquis] 2.5 mg PO BID 11/24/16 11/24/16 History Cyanocobalamin (Vitamin B-12) 1,000 mcg PO SUTUTH 11/24/16 11/24/16 History [Vitamin B-12] Cyanocobalamin (Vitamin B-12) 500 mcg PO SA 11/24/16 11/24/16 History [Vitamin B-12] Fluticasone Nasal [place] [Flonase 2 spr EA NOSTRIL DAILY PRN 11/24/16 11/24/16 History Nasal [place]] L.acidoph,Paracasei, B.lactis 1 cap PO HS 11/24/16 11/24/16 History [Probiotic] Levothyroxine Sodium [Synthroid] 125 mcg PO DAILY 11/24/16 11/24/16 History Rivastigmine Tartrate [Exelon] 6 mg PO BID 11/24/16 11/24/16 History diphenhydrAMINE [Benadryl] 50 mg PO HS 11/24/16 11/24/16 History Allergies Allergy/AdvReac Type Severity Reaction Status Date / Time ELASTIC Allergy BINDS/CUTS Uncoded 11/24/16 14:02 INTO SKIN Physical Exam Vitals: Vital Signs Temp Pulse Pulse Pulse Resp BP BP 11/25/16 12:00 97.5 F L 59 L 18 117/60 11/25/16 08:00 98.2 F 69 18 11/25/16 03:07 98.6 F 70 18 140/63 11/24/16 23:39 98.3 F 69 18 105/48 11/24/16 20:00 97.5 F L 65 16 146/64 11/24/16 18:44 66 18 11/24/16 17:32 97.7 F 66 18 11/24/16 16:59 59 L 16 162/70 BP Pulse Ox 11/25/16 12:00 94 L 11/25/16 08:00 154/51 95 11/25/16 03:07 94 L 11/24/16 23:39 97 11/24/16 20:00 94 L 11/24/16 18:44 11/24/16 17:32 142/80 98 11/24/16 16:59 100 Intake and Output 11/24/16 11/25/16 11/25/16 22:59 06:59 14:59 Intake Total 240 355 Balance 240 355 Intake: Oral 240 355 Other: Voiding Method Toilet Toilet Toilet # Voids 1 Weight 67 kg GENERAL: Pt awake and alert, well-appearing, well-nourished, and in no acute distress. HEAD: Atraumatic, normocephalic. EYES: Pupils equal, round, and reactive to light, extraocular movements intact, sclera anicteric, conjunctiva are normal. ENT: Oropharynx clear without exudates. Moist mucous membranes. NECK: Supple without lymphadenopathy or JVD. LUNGS: Breath sounds clear to auscultation bilaterally. No wheezes, rales, or rhonchi. HEART: Heart S1, S2, no S3 or S4. Regular rate and rhythm. No murmurs, rubs or gallops. ABDOMEN: Soft, nontender, nondistended, normoactive bowel sounds. No guarding, no rebound. No masses or organomegaly appreciated. EXTREMITIES: Palpable peripheral pulses. No edema. No calf tenderness. NEUROLOGICAL: Pt oriented x 3. No focal deficits noted. Strength and sensation grossly intact. PSYCH: Normal mood, normal affect. SKIN: Warm, dry, intact. Normal turgor. No rashes or lesions. Results CBC & Chem 7: 11/25/16 02:54 11/25/16 02:54 Labs: Abnormal Lab Results - Last 24 Hours (Table) 11/25/16 11/25/16 11/25/16 Range/Units 02:54 02:54 07:30 RBC 3.61 L (3.80-5.40) m/uL Hgb 10.3 L (11.4-16.0) gm/dL Hct 33.0 L (34.0-46.0) % RDW 17.9 H (11.5-15.5) % BUN 30 H (7-17) mg/dL Creatinine 1.54 H (0.52-1.04) mg/dL POC Glucose (mg/dL) 110 H (75-99) mg/dL CT scan - abdomen: report reviewed CT scan - pelvis: report reviewed Thrombosis Risk Factor Assmnt - DVT/VTE Prophylaxis DVT/VTE Prophylaxis: Pharmacologic Prophylaxis ordered - Choose All That Apply Any of the Below Risk Factors Present?: Yes Each Factor Represents 1 point: Obesity (BMI >25) Other Risk Factors: Yes Each Risk Factor Represents 3 Points: Age 75 years or older Thrombosis Risk Factor Assessment Total Risk Factor Score: 4 Thrombosis Risk Factor Assessment Level: Moderate Risk Assessment and Plan Plan: Impression: 1. Abdominal pain, acute, present on admission, resolved. Cardiac origin ruled out. CT of abdomen and pelvis negative. 2. Chronic renal failure, stage III. 3. Persistent atrial fibrillation. 4. Anemia. Hemoglobin 10.3. Suspect secondary to dilution. 5. Diabetes mellitus type 2. 6. Coronary artery disease. 7. Vascular dementia. 8. Hyperlipidemia. 9. Hypertension. 10. History of pulmonary embolus. 11. Hypothyroidism. 12. History of upper GI bleed. 13. History of right breast cancer treated with radiation. Plan: Patient will receive a 250 mL fluid bolus and be discharged to home. Patient will follow-up with Dr. Strange in 2-3 days for repeat BMP and possible consult to gastrointestinal service. Patient will resume home medications. Discharge diagnoses: 1. Abdominal pain, acute, present on admission, resolved. Cardiac origin ruled out. CT of abdomen and pelvis negative. 2. Chronic renal failure, stage III. 3. Persistent atrial fibrillation. 4. Anemia. Hemoglobin 10.3. Suspect secondary to dilution. 5. Diabetes mellitus type 2. 6. Coronary artery disease. 7. Vascular dementia. 8. Hyperlipidemia. 9. Hypertension. 10. History of pulmonary embolus. 11. Hypothyroidism. 12. History of upper GI bleed. 13. History of right breast cancer treated with radiation. The above impression and plan have been discussed and directed by Dr. Strange. Halie ST acting as scribe for Dr. Strange.
== END 2016-11-25 14:30 | disposition home or self-care (01) ==
LOC: EC 13:58 → 3OBS 16:24
PROVIDERS: ADMIT Family Medicine; ATTEND Family Medicine
DX: R10.10 Upper abdominal pain, unspecified (principal); R07.9 Chest pain, unspecified; G25.81 Restless legs syndrome; E78.5 Hyperlipidemia, unspecified; F01.50 Vascular dementia, unspecified severity, without behavioral disturbance, psychotic disturbance, mood disturbance, and anxiety; E11.22 Type 2 diabetes mellitus with diabetic chronic kidney disease; I12.9 Hypertensive chronic kidney disease with stage 1 through stage 4 chronic kidney disease, or unspecified chronic kidney disease; N18.3 Chronic kidney disease, stage 3 (moderate); E03.9 Hypothyroidism, unspecified; I38 Endocarditis, valve unspecified; I48.1 Persistent atrial fibrillation; D64.9 Anemia, unspecified; H40.9 Unspecified glaucoma; F32.9 Major depressive disorder, single episode, unspecified; I25.10 Atherosclerotic heart disease of native coronary artery without angina pectoris; M19.90 Unspecified osteoarthritis, unspecified site; Z91.040 Latex allergy status; Z79.01 Long term (current) use of anticoagulants; Z79.899 Other long term (current) drug therapy; Z91.048 Other nonmedicinal substance allergy status; Z85.3 Personal history of malignant neoplasm of breast; Z86.711 Personal history of pulmonary embolism; Z92.3 Personal history of irradiation; Z87.891 Personal history of nicotine dependence; Z82.49 Family history of ischemic heart disease and other diseases of the circulatory system; Z80.49 Family history of malignant neoplasm of other genital organs
CPT/HCPCS: 96374; 96375 ×2; 96361 ×3; 99285; 36415; 93005; 86900; 86901; 80053; 80048; 80162; 83605; 83690; 83735; 84484 ×2; 85025 ×2; 85610; 85730; 86850; 81001; 87086; 74022; 74176; G0378 ×2; J2270; J1200; J2765

== ENCOUNTER 2017-01-20 20:16 | Emergency (ER) | payer MEDICARE ==
--- NOTE | 2017-01-20 20:45 | ED ---
Back Pain [facility] - General Chief Complaint: Back Pain/Injury Stated Complaint: Chronic Back Pain Time Seen by Provider: 01/20/17 20:22 Source: patient, family, RN notes reviewed Limitations: no limitations - History of Present Illness Initial Comments: 81-year-old female presents to the emergency department with a chief complaint of back pain. Patient has had this back pain for the past few months. Patient states that it has been getting worse and she saw her doctor and he scheduled an MRI for 2 weeks from today. Patient states that when she lays or states he has no back pain is only when she is doing activities. Patient states there is no radiation down the legs. Patient states laying in the bed she has no pain. Patient states is no loss of bowel or bladder function. Patient denies any saddle anesthesia. Patient states that she just cannot wait 2 weeks to have a MRI so she thought that maybe we can do it for her today. Patient is in no pain. Patient is taking no home pain medication. Patient states that she is not currently having any other symptoms. Patient denies any recent fever, chills , shortness of breath, chest pain, abdominal pain, nausea vomiting, numbness or tingling, dysuria or hematuria, constipation or diarrhea, headaches or visual changes, or any other current symptoms. - Related Data Home Medications Medication Instructions Recorded Confirmed Latanoprost Ophth [Xalatan 0.005%] 1 drop BOTH EYES HS 06/17/14 11/24/16 Multivitamins, Thera [Multivitamin 1 tab PO DAILY 06/17/14 11/24/16 (formulary)] ALPRAZolam [Xanax] 0.25 mg PO HS PRN 05/13/15 11/24/16 Metoprolol Succinate [Toprol XL] 50 mg PO QAM 05/13/15 11/24/16 Nitroglycerin Sl Tabs [Nitrostat] 0.4 mg SUBLINGUAL Q5M PRN 05/13/15 11/24/16 Furosemide [Lasix] 40 mg PO DAILY 05/26/15 11/24/16 Spironolactone [Aldactone] 25 mg PO DAILY 05/26/15 11/24/16 rOPINIRole HCL [Requip] 2 mg PO BID 05/26/15 11/24/16 Amiodarone HCl [Pacerone] 100 mg PO DAILY 11/24/16 11/24/16 Apixaban [Eliquis] 2.5 mg PO BID 11/24/16 11/24/16 Cyanocobalamin (Vitamin B-12) 1,000 mcg PO SUTUTH 11/24/16 11/24/16 [Vitamin B-12] Cyanocobalamin (Vitamin B-12) 500 mcg PO SA 11/24/16 11/24/16 [Vitamin B-12] Fluticasone Nasal [place] [Flonase 2 spr EA NOSTRIL DAILY PRN 11/24/16 11/24/16 Nasal [place]] L.acidoph,Paracasei, B.lactis 1 cap PO HS 11/24/16 11/24/16 [Probiotic] Levothyroxine Sodium [Synthroid] 125 mcg PO DAILY 11/24/16 11/24/16 Rivastigmine Tartrate [Exelon] 6 mg PO BID 11/24/16 11/24/16 diphenhydrAMINE [Benadryl] 50 mg PO HS 11/24/16 11/24/16 Memantine HCl [Namenda Xr] 28 mg PO DAILY 01/20/17 01/20/17 Simvastatin [Zocor] 20 mg PO HS 01/20/17 01/20/17 Previous Rx's Medication Instructions Recorded Aspirin 81 mg PO DAILY chew 04/04/15 Sertraline [Zoloft] 100 mg PO QAM #30 tab 04/04/15 traMADol HCl [Ultram] 50 mg PO Q4H PRN #20 tab 01/20/17 Allergies Allergy/AdvReac Type Severity Reaction Status Date / Time ELASTIC Allergy BINDS/CUTS Uncoded 01/20/17 20:34 INTO SKIN Review of Systems ROS Statement: Those systems with pertinent positive or pertinent negative responses have been documented in the HPI. ROS Other: All systems not noted in ROS Statement are negative. Past Medical History Past Medical History: Atrial Fibrillation, Coronary Artery Disease (CAD), Cancer , Dementia, Diabetes Mellitus, Eye Disorder, GI Bleed, Hyperlipidemia, Hypertension, Osteoarthritis (OA), Pulmonary Embolus (PE), Thyroid Disorder Additional Past Medical History / Comment(s): 03-26-15 ADMITTED WITH AFIB RVR. OTHER HX: AUG/2012 PULMONARY EMBOLISM, Feb UPPER GI BLEED TAKEN OFF COUMADIN, 1997 R breast ca TX WITH RADIATION. GLAUCOMA BILATERAL EYES, RLS. hypothyroid. History of Any Multi-Drug Resistant Organisms: None Reported Past Surgical History: Breast Surgery, Cholecystectomy, Heart Catheterization, Orthopedic Surgery Additional Past Surgical History / Comment(s): CURRENTYLY HAVING DIFFICULTY SWALLOWING,1973 AND 1976 GANGLION CYST REMOVED L WRIST, 1976 R FOOT BONE SPUR REMOVAL, left heart catheterization in 2012 with 30-40% stenosis of the RCA and LAD, transesophageal echogram 2006, right breast biopsy 2009, cataract surgery 2009, last colonoscopy was in 2011. Past Anesthesia/Blood Transfusion Reactions: No Reported Reaction Additional Past Anesthesia/Blood Transfusion Reaction / Comment(s): PT HAD BLOOD TRANSFUSION WHEN SHE HAD A UPPER GI BLEED IN 2013. Past Psychological History: Depression Smoking Status: Former smoker Past Alcohol Use History: None Reported Past Drug Use History: None Reported - Past Family History Father Family Medical History: Coronary Artery Disease (CAD), Myocardial Infarction ([place] ) Additional Family Medical History / Comment(s): FATHER AT AGE 72 OF [place]. Mother Family Medical History: Cancer Additional Family Medical History / Comment(s): MOTHER AT AGE 76 OF UTERINE CANCER. Sister(s) Family Medical History: GERD/Reflux Brother(s) Family Medical History: Diabetes Mellitus Daughter(s) Family Medical History: No Reported History Son(s) Family Medical History: No Reported History General Exam Limitations: no limitations General appearance: alert, in no apparent distress ENT exam: Present: normal exam, mucous membranes moist Neck exam: Present: normal inspection. Absent: tenderness, meningismus, lymphadenopathy Respiratory exam: Present: normal lung sounds bilaterally. Absent: respiratory distress, wheezes, rales, rhonchi, stridor Cardiovascular Exam: Present: regular rate, normal rhythm, normal heart sounds. Absent: systolic murmur, diastolic murmur, rubs, gallop, clicks GI/Abdominal exam: Present: soft, normal bowel sounds. Absent: distended, tenderness, guarding, rebound, rigid Extremities exam: Present: normal inspection, full ROM, normal capillary refill. Absent: tenderness, pedal edema, joint swelling, calf tenderness Back exam: Present: normal inspection, other (negative Bilateral straight leg raise). Absent: full ROM (Pain with limited range of motion) Neurological exam: Present: alert, oriented X3 Psychiatric exam: Present: normal affect, normal mood Skin exam: Present: warm, dry, intact, normal color. Absent: rash Course Vital Signs 01/20/17 01/20/17 20:30 21:28 Temperature 97.4 F L Pulse Rate 102 H 101 H Respiratory 18 18 Rate Blood Pressure 134/71 120/67 O2 Sat by Pulse 95 94 L Oximetry Medical Decision Making - Medical Decision Making 9-year-old female presents emergency Department chief complaint of low back pain. Patient does suffer from pain are multiple times. Patient denies any increase or change in her pain is just unable to wait for her MRI per the patient. At this time patient is feeling better and patient is still pain free. This time we will the patient for tramadol for home. We did discuss CAT scan with the T12 compression fracture. We did discuss Motrin and Tylenol as long with medications and we did give him follow-up dorsal on Monday. We did discuss return parameters all questions. Patient stated they understood and all questions have been answered. They will be discharged home. Disposition Clinical Impression: T12 compression fracture Disposition: HOME SELF-CARE Condition: Stable Instructions: Chronic Back Pain (ED) Additional Instructions: Please use medication as discussed. Please follow up with family doctor if symptoms have not improved over the next two days. Please return to the emergency room if your symptoms increase or worsen or for any other concerns. Prescriptions: traMADol HCl [Ultram] 50 mg PO Q4H PRN #20 tab PRN Reason: Pain Referrals: Tariq Strange DO [Primary Care Provider] - 1-2 days Time of Disposition: 21:45
[2017-01-20 20:51] VITALS: RESP 18
--- NOTE | 2017-01-20 21:10 | CT ---
EXAMINATION TYPE: CT lumbar spine wo con DATE OF EXAM: 01/20/2017 8:57 PM COMPARISON: CT abdomen 11/24/2016. HISTORY: Lower back pain after multiple fall injurys. CT DLP: 689.2 mGycm Automated exposure control for dose reduction was used. Unenhanced CT of the lumbar spine was performed. Bone and soft tissue window settings are submitted as well as coronal and sagittal reconstructions. The vertebra have normal alignment.. Disc spaces are fairly normal for age. There is mild depression of the superior endplate of T12 and L1 with 10-15% loss of height. This is consistent with relatively acute fractures. There is hypertrophic facet arthropathy throughout the lumbar spine. Abdominal aort a is atheromatous. There is no paraspinal mass. IMPRESSION: There is a compression fracture of L1 that is stable compared to old CT scan of 11/24/2016. There is a new mild compression fracture of T12 compared to old exam.
[2017-01-20 21:29] VITALS: BP 120/67
[2017-01-20] MEDS ORDERED: methylPREDNISolone SOD SUCCI 125 MG/2 ML VIAL IV STA (21:47)
[2017-01-20 22:33] VITALS: PULSE 100; TEMP 97.9
== END 2017-01-20 22:00 | disposition home or self-care (01) ==
LOC: EC 20:16
DX: M48.54XA Collapsed vertebra, not elsewhere classified, thoracic region, initial encounter for fracture (principal); I25.10 Atherosclerotic heart disease of native coronary artery without angina pectoris; E11.9 Type 2 diabetes mellitus without complications; E78.5 Hyperlipidemia, unspecified; I48.91 Unspecified atrial fibrillation; F03.90 Unspecified dementia, unspecified severity, without behavioral disturbance, psychotic disturbance, mood disturbance, and anxiety; I10 Essential (primary) hypertension; M19.90 Unspecified osteoarthritis, unspecified site; E07.9 Disorder of thyroid, unspecified; Z87.891 Personal history of nicotine dependence; Z79.01 Long term (current) use of anticoagulants; Z79.899 Other long term (current) drug therapy; Z91.048 Other nonmedicinal substance allergy status; Z86.711 Personal history of pulmonary embolism; Z85.3 Personal history of malignant neoplasm of breast; Z95.818 Presence of other cardiac implants and grafts
CPT/HCPCS: 72131; 99284; 96374; J2930

== ENCOUNTER 2017-02-05 10:08 | Inpatient (IN) | payer MEDICARE ==
[2017-02-05] MEDS ORDERED: HYDROmorphone 1 MG/ML 1 ML SYRINGE IVP STA (10:24)
[2017-02-05] MEDS ORDERED: ORPHENADRINE 30 MG/ML 2 ML VIAL IVP STA (10:25)
--- NOTE | 2017-02-05 10:28 | ED ---
Back Pain HPI - General Chief Complaint: Back Pain/Injury Stated Complaint: Back Pain Time Seen by Provider: 02/05/17 10:08 Source: patient, EMS, RN notes reviewed, old records reviewed Limitations: no limitations - History of Present Illness Initial Comments: This is female history of known compression fracture of L1 mild compression fracture of T12 who came in due to severe low back pain. She stated it was 10/ 10. Sharp and radiating around her waistline. It does not really down. She denies any urinary or fecal incontinence any new injury she doesn't history of falls in the past but nothing recently. She denies any abdominal pain any weakness or lower extremities no other complaints other than pain. She did see his orthopedic back surgeon 2 days ago she scheduled to have surgery on the of this month. No other reports of complaints at this time. MD Complaint: back pain - Related Data Home Medications Medication Instructions Recorded Confirmed Latanoprost Ophth [Xalatan 0.005%] 1 drop BOTH EYES HS 06/17/14 01/20/17 Multivitamins, Thera [Multivitamin 1 tab PO DAILY 06/17/14 01/20/17 (formulary)] ALPRAZolam [Xanax] 0.25 mg PO HS PRN 05/13/15 01/20/17 Metoprolol Succinate [Toprol XL] 50 mg PO QAM 05/13/15 01/20/17 Nitroglycerin Sl Tabs [Nitrostat] 0.4 mg SUBLINGUAL Q5M PRN 05/13/15 01/20/17 Furosemide [Lasix] 40 mg PO DAILY 05/26/15 01/20/17 Spironolactone [Aldactone] 25 mg PO DAILY 05/26/15 01/20/17 rOPINIRole HCL [Requip] 2 mg PO HS 05/26/15 01/20/17 Amiodarone HCl [Pacerone] 100 mg PO DAILY 11/24/16 01/20/17 Apixaban [Eliquis] 2.5 mg PO BID 11/24/16 01/20/17 Cyanocobalamin (Vitamin B-12) 1,000 mcg PO SUTUTH 11/24/16 01/20/17 [Vitamin B-12] Cyanocobalamin (Vitamin B-12) 500 mcg PO SA 11/24/16 01/20/17 [Vitamin B-12] Fluticasone Nasal [place] [Flonase 2 spr EA NOSTRIL DAILY PRN 11/24/16 01/20/17 Nasal [place]] L.acidoph,Paracasei, B.lactis 1 cap PO HS 11/24/16 01/20/17 [Probiotic] Levothyroxine Sodium [Synthroid] 125 mcg PO DAILY 11/24/16 01/20/17 Rivastigmine Tartrate [Exelon] 6 mg PO BID 11/24/16 01/20/17 diphenhydrAMINE [Benadryl] 50 mg PO HS 11/24/16 01/20/17 Memantine HCl [Namenda Xr] 28 mg PO DAILY 01/20/17 01/20/17 Simvastatin [Zocor] 20 mg PO HS 01/20/17 01/20/17 Previous Rx's Medication Instructions Recorded Aspirin 81 mg PO DAILY chew 04/04/15 Sertraline [Zoloft] 100 mg PO QAM #30 tab 04/04/15 traMADol HCl [Ultram] 50 mg PO Q4H PRN #20 tab 01/20/17 Allergies Allergy/AdvReac Type Severity Reaction Status Date / Time ELASTIC Allergy BINDS/CUTS Uncoded 02/05/17 10:20 INTO SKIN Review of Systems ROS Statement: Those systems with pertinent positive or pertinent negative responses have been documented in the HPI. ROS Other: All systems not noted in ROS Statement are negative. Past Medical History Past Medical History: Atrial Fibrillation, Coronary Artery Disease (CAD), Cancer , Dementia, Diabetes Mellitus, Eye Disorder, GI Bleed, Hyperlipidemia, Hypertension, Osteoarthritis (OA), Pulmonary Embolus (PE), Thyroid Disorder Additional Past Medical History / Comment(s): 03-26-15 ADMITTED WITH AFIB RVR. OTHER HX: AUG/2012 PULMONARY EMBOLISM, Feb UPPER GI BLEED TAKEN OFF COUMADIN, 1997 R breast ca TX WITH RADIATION. GLAUCOMA BILATERAL EYES, RLS. hypothyroid. History of Any Multi-Drug Resistant Organisms: None Reported Past Surgical History: Breast Surgery, Cholecystectomy, Heart Catheterization, Orthopedic Surgery Additional Past Surgical History / Comment(s): CURRENTYLY HAVING DIFFICULTY SWALLOWING,1973 AND 1976 GANGLION CYST REMOVED L WRIST, 1976 R FOOT BONE SPUR REMOVAL, left heart catheterization in 2012 with 30-40% stenosis of the RCA and LAD, transesophageal echogram 2006, right breast biopsy 2009, cataract surgery 2009, last colonoscopy was in 2011. Past Anesthesia/Blood Transfusion Reactions: No Reported Reaction Additional Past Anesthesia/Blood Transfusion Reaction / Comment(s): PT HAD BLOOD TRANSFUSION WHEN SHE HAD A UPPER GI BLEED IN 2012. Past Psychological History: Depression Smoking Status: Former smoker Past Alcohol Use History: None Reported Past Drug Use History: None Reported - Past Family History Father Family Medical History: Coronary Artery Disease (CAD), Myocardial Infarction ([place] ) Additional Family Medical History / Comment(s): FATHER AT AGE 72 [place]. Mother Family Medical History: Cancer Additional Family Medical History / Comment(s): MOTHER AT AGE 76 OF UTERINE CANCER. Sister(s) Family Medical History: GERD/Reflux Brother(s) Family Medical History: Diabetes Mellitus Daughter(s) Family Medical History: No Reported History Son(s) Family Medical History: No Reported History General Exam - General Exam Comments Initial Comments: This is a well-developed well-nourished awake alert oriented 3 female Limitations: no limitations General appearance: alert, anxious, in distress Head exam: Present: atraumatic, normocephalic, normal inspection Eye exam: Present: normal appearance, PERRL, EOMI. Absent: scleral icterus, conjunctival injection, periorbital swelling ENT exam: Present: normal exam, mucous membranes moist Neck exam: Present: normal inspection. Absent: tenderness, meningismus, lymphadenopathy Respiratory exam: Present: normal lung sounds bilaterally. Absent: respiratory distress, wheezes, rales, rhonchi, stridor Cardiovascular Exam: Present: tachycardia. Absent: systolic murmur, diastolic murmur, rubs, gallop, clicks GI/Abdominal exam: Present: soft, normal bowel sounds. Absent: distended, tenderness, guarding, rebound, rigid Rectal exam: Present: deferred Extremities exam: Present: normal inspection, full ROM, normal capillary refill. Absent: tenderness, pedal edema, joint swelling, calf tenderness Back exam: Present: normal inspection, tenderness, paraspinal tenderness, vertebral tenderness (Tenderness to the T12-L1 region to palpation no step-off or crepitation. No increased local temperature.). Absent: full ROM, CVA tenderness (R), CVA tenderness (L) Neurological exam: Present: alert, oriented X3, CN II-XII intact Psychiatric exam: Present: normal affect, normal mood Skin exam: Present: warm, dry, intact, normal color. Absent: rash Course Vital Signs 02/05/17 02/05/17 02/05/17 10:10 11:22 12:00 Temperature 97.0 F L Pulse Rate 128 H 125 H 124 H Respiratory 18 16 18 Rate Blood Pressure 106/59 142/80 O2 Sat by Pulse 96 99 98 Oximetry 02/05/17 13:00 Temperature 97.6 F Pulse Rate 123 H Respiratory 18 Rate Blood Pressure 110/68 O2 Sat by Pulse 99 Oximetry - Reevaluation(s) Reevaluation #1: 02/05/17 13:31 Patient initially had improvement obtained after x-rays and movement she had increased pain she will accept the pain medication. Medical Decision Making - Medical Decision Making I did a long discussion with patient family members regarding findings. Patient has not any chest pain patient is noted to be somewhat tachycardic millimeter pulmonary on the basis of renal insufficiency the patient will be admitted for evaluation by cardiology and orthopedic surgery. - Lab Data Result diagrams: 02/05/17 11:20 Lab Results 02/05/17 02/05/17 02/05/17 Range/Units 10:30 10:45 11:20 PT 11.6 (9.0-12.0) sec INR 1.2 (<1.1) APTT 24.7 (22.0-30.0) sec Sodium (137-145) mmol/L Potassium (3.5-5.1) mmol/L Chloride (98-107) mmol/L Carbon Dioxide (22-30) mmol/L Anion Gap mmol/L BUN (7-17) mg/dL Creatinine (0.52-1.04) mg/dL Est GFR (MDRD) Af Amer (>60 ml/min/1.73 sqM) Est GFR (MDRD) Non-Af (>60 ml/min/1.73 sqM) Glucose (74-99) mg/dL Calcium (8.4-10.2) mg/dL Magnesium (1.6-2.3) mg/dL Total Bilirubin (0.2-1.3) mg/dL AST (14-36) U/L ALT (9-52) U/L Alkaline Phosphatase (38-126) U/L Total Creatine Kinase 53 (30-135) U/L CK-MB (CK-2) 2.0 (0.0-2.4) ng/mL CK-MB (CK-2) Rel Index 3.8 Troponin I 0.041 H* (0.000-0.034) ng/mL Total Protein (6.3-8.2) g/dL Albumin (3.5-5.0) g/dL Amylase (30-110) U/L Lipase (23-300) U/L Urine Color Yellow Urine Appearance Clear (Clear) Urine pH 5.0 (5.0-8.0) Ur Specific [place] 1.017 (1.001-1.035) Urine Protein Trace H (Negative) Urine Glucose (UA) Negative (Negative) Urine Ketones Negative (Negative) Urine Blood Negative (Negative) Urine Nitrite Negative (Negative) Urine Bilirubin Negative (Negative) Urine Urobilinogen <2.0 (<2.0) mg/dL Ur Leukocyte Esterase Large H (Negative) Urine RBC <1 (0-5) /hpf Urine WBC 22 H (0-5) /hpf Ur Squamous Epith Cells 1 (0-4) /hpf Urine Mucus Rare H (None) /hpf 02/05/17 Range/Units 11:20 PT (9.0-12.0) sec INR (<1.1) APTT (22.0-30.0) sec Sodium 138 (137-145) mmol/L Potassium 4.6 (3.5-5.1) mmol/L Chloride 106 (98-107) mmol/L Carbon Dioxide 19 L (22-30) mmol/L Anion Gap 13 mmol/L BUN 39 H (7-17) mg/dL Creatinine 1.65 H (0.52-1.04) mg/dL Est GFR (MDRD) Af Amer 36 (>60 ml/min/1.73 sqM) Est GFR (MDRD) Non-Af 30 (>60 ml/min/1.73 sqM) Glucose 154 H (74-99) mg/dL Calcium 8.7 (8.4-10.2) mg/dL Magnesium 2.3 (1.6-2.3) mg/dL Total Bilirubin 0.6 (0.2-1.3) mg/dL AST 25 (14-36) U/L ALT 26 (9-52) U/L Alkaline Phosphatase 114 (38-126) U/L Total Creatine Kinase (30-135) U/L CK-MB (CK-2) (0.0-2.4) ng/mL CK-MB (CK-2) Rel Index Troponin I (0.000-0.034) ng/mL Total Protein 7.1 (6.3-8.2) g/dL Albumin 4.1 (3.5-5.0) g/dL Amylase 50 (30-110) U/L Lipase 156 (23-300) U/L Urine Color Urine Appearance (Clear) Urine pH (5.0-8.0) Ur Specific [place] (1.001-1.035) Urine Protein (Negative) Urine Glucose (UA) (Negative) Urine Ketones (Negative) Urine Blood (Negative) Urine Nitrite (Negative) Urine Bilirubin (Negative) Urine Urobilinogen (<2.0) mg/dL Ur Leukocyte Esterase (Negative) Urine RBC (0-5) /hpf Urine WBC (0-5) /hpf Ur Squamous Epith Cells (0-4) /hpf Urine Mucus (None) /hpf - EKG Data -: EKG Interpreted by Md EKG shows normal: sinus rhythm Rate: tachycardia (Sinus tachycardia with a prescription AV block the rate was 124 DE interval 276 QRS 90 QT since QTC of 3 to this is compared with EKG dated 11/24/16 which at that time a rate of 63) - Radiology Data Radiology results: report reviewed (I did review the imaging and reports there is evidence of progression of the wedge fracture of T12.), image reviewed Disposition Clinical Impression: Intractable back pain, Elevated troponin, Tachycardia Disposition: ADMITTED IP TO THIS [facility] Condition: Stable Referrals: Tariq Strange DO [Primary Care Provider] - 1-2 days
[2017-02-05 10:58] LABS: INR 1.2 (<1.1); Partial Thromboplastin Time 24.7 sec (22.0-30.0); Prothrombin Time 11.6 sec (9.0-12.0)
[2017-02-05 11:11] LABS: Appearance,Urine Clear (Clear); Bilirubin,Urine Negative (Negative); Glucose,Urine (UA) Negative (Negative); Ketones,Urine Negative (Negative); Leukocyte Esterase,Urine Large (Negative); Mucus,Urine Rare /hpf; Nitrite,Urine Negative (Negative); Particle Count 2574; Protein,Urine Trace (Negative); RBC,Urine <1 /hpf (0-5); Specific Gravity,Urine 1.017 (1.001-1.035); Squamous Epithelial Cell,Urine 1 /hpf (0-4); UA Billing (MACRO vs. MICRO) MICRO; Urobilinogen,Urine <2.0 mg/dL (<2.0); WBC,Urine 22 /hpf (0-5)
[2017-02-05 11:39] LABS: Calcium 8.7 mg/dL (8.4-10.2); Magnesium 2.3 mg/dL (1.6-2.3); Potassium 4.6 mmol/L (3.5-5.1); Total Bilirubin 0.6 mg/dL (0.2-1.3); Total Protein 7.1 g/dL (6.3-8.2)
--- NOTE | 2017-02-05 12:03 | XR ---
EXAMINATION TYPE: XR abdomen 1V DATE OF EXAM: 02/05/2017 CLINICAL DATA: 81-year-old female with pain, [facility] COMPARISON: 11/24/2016 FINDINGS: Supine imaging limited for assessment of free intraperitoneal air. Cholecystectomy clips. Scattered [id number] stool. Air extends distally into the rectum. No dil ated small bowel loops. Some nonspecific calcifications in the left paramedian upper abdomen likely vascular. Mild degenerative change of the hips. Gentle levoconvex curvature of the lumbar spine with associated degenerative change IMPRESSION: Nonobstructive bowel gas pattern. Scattered [id number] stool.
[2017-02-05 12:08] LABS: Troponin I 0.041 ng/mL (0.000-0.034)
--- NOTE | 2017-02-05 12:08 | XR ---
EXAMINATION TYPE: XR lumbar spine 2 or 3V DATE OF EXAM: 02/05/2017 COMPARISON: 11/21/2016 and 01/18/2017 HISTORY: 81 year-old female chronic back pain, scheduled for kyphoplasty on January 2017 but pain has be come uncontrollable. TECHNIQUE: 3 views FINDINGS: T12 anterior compression deformity with 40% anterior height loss is noted to be new from 11/21/2016 an d progressed from 01/18/2017. Mild superior endplate compression deformity of L1 is stable. Grade 1 re trolisthesis at L1-L2 and L2-L3. No new vertebral compression collapse is seen. Hypertrophic facet ar thropathy mid to lower lumbar spine. Atherosclerotic calcifications throughout the abdominal aorta. T here is accentuated lower thoracic kyphosis and continued levoconvex curvature possibly due to pain/s pasm. IMPRESSION: 1. T12 anterior compression fracture progressed from 01/18/2017 now with 40% anterior height loss. No other new vertebral compression deformity. 2. Stable grade 1 retrolistheses at L1-L2 and L2-L3.
--- NOTE | 2017-02-05 13:59 | ED ---
Medical Decision Making - Lab Data Result diagrams: 02/05/17 11:20 Lab Results 02/05/17 02/05/17 02/05/17 Range/Units 10:30 10:45 11:20 PT 11.6 (9.0-12.0) sec INR 1.2 (<1.1) APTT 24.7 (22.0-30.0) sec Sodium (137-145) mmol/L Potassium (3.5-5.1) mmol/L Chloride (98-107) mmol/L Carbon Dioxide (22-30) mmol/L Anion Gap mmol/L BUN (7-17) mg/dL Creatinine (0.52-1.04) mg/dL Est GFR (MDRD) Af Amer (>60 ml/min/1.73 sqM) Est GFR (MDRD) Non-Af (>60 ml/min/1.73 sqM) Glucose (74-99) mg/dL Calcium (8.4-10.2) mg/dL Magnesium (1.6-2.3) mg/dL Total Bilirubin (0.2-1.3) mg/dL AST (14-36) U/L ALT (9-52) U/L Alkaline Phosphatase (38-126) U/L Total Creatine Kinase 53 (30-135) U/L CK-MB (CK-2) 2.0 (0.0-2.4) ng/mL CK-MB (CK-2) Rel Index 3.8 Troponin I 0.041 H* (0.000-0.034) ng/mL Total Protein (6.3-8.2) g/dL Albumin (3.5-5.0) g/dL Amylase (30-110) U/L Lipase (23-300) U/L Urine Color Yellow Urine Appearance Clear (Clear) Urine pH 5.0 (5.0-8.0) Ur Specific [place] 1.017 (1.001-1.035) Urine Protein Trace H (Negative) Urine Glucose (UA) Negative (Negative) Urine Ketones Negative (Negative) Urine Blood Negative (Negative) Urine Nitrite Negative (Negative) Urine Bilirubin Negative (Negative) Urine Urobilinogen <2.0 (<2.0) mg/dL Ur Leukocyte Esterase Large H (Negative) Urine RBC <1 (0-5) /hpf Urine WBC 22 H (0-5) /hpf Ur Squamous Epith Cells 1 (0-4) /hpf Urine Mucus Rare H (None) /hpf 02/05/17 Range/Units 11:20 PT (9.0-12.0) sec INR (<1.1) APTT (22.0-30.0) sec Sodium 138 (137-145) mmol/L Potassium 4.6 (3.5-5.1) mmol/L Chloride 106 (98-107) mmol/L Carbon Dioxide 19 L (22-30) mmol/L Anion Gap 13 mmol/L BUN 39 H (7-17) mg/dL Creatinine 1.65 H (0.52-1.04) mg/dL Est GFR (MDRD) Af Amer 36 (>60 ml/min/1.73 sqM) Est GFR (MDRD) Non-Af 30 (>60 ml/min/1.73 sqM) Glucose 154 H (74-99) mg/dL Calcium 8.7 (8.4-10.2) mg/dL Magnesium 2.3 (1.6-2.3) mg/dL Total Bilirubin 0.6 (0.2-1.3) mg/dL AST 25 (14-36) U/L ALT 26 (9-52) U/L Alkaline Phosphatase 114 (38-126) U/L Total Creatine Kinase (30-135) U/L CK-MB (CK-2) (0.0-2.4) ng/mL CK-MB (CK-2) Rel Index Troponin I (0.000-0.034) ng/mL Total Protein 7.1 (6.3-8.2) g/dL Albumin 4.1 (3.5-5.0) g/dL Amylase 50 (30-110) U/L Lipase 156 (23-300) U/L Urine Color Urine Appearance (Clear) Urine pH (5.0-8.0) Ur Specific [place] (1.001-1.035) Urine Protein (Negative) Urine Glucose (UA) (Negative) Urine Ketones (Negative) Urine Blood (Negative) Urine Nitrite (Negative) Urine Bilirubin (Negative) Urine Urobilinogen (<2.0) mg/dL Ur Leukocyte Esterase (Negative) Urine RBC (0-5) /hpf Urine WBC (0-5) /hpf Ur Squamous Epith Cells (0-4) /hpf Urine Mucus (None) /hpf Disposition Clinical Impression: Intractable back pain, Elevated troponin, Tachycardia, Renal insufficiency Disposition: ADMITTED IP TO THIS HOSP Condition: Stable Referrals: Tariq Strange DO [Primary Care Provider] - 1-2 days
[2017-02-05 14:00] LABS: Anisocytosis Slight; Basophils % (A) 0 %; CH 27.5; CHCM 31.2; Eosinophils % (A) 0 %; HCT 36.6 % (34.0-46.0); HDW 3.17; HGB 11.7 gm/dL (11.4-16.0); Hypochromasia Moderate; Luc # (Auto) 0.14; Luc % (Auto) 1; Lymphocytes # (A) 0.7 k/uL (1.0-4.8); Lymphocytes % (A) 5 %; MCH 28.1 pg (25.0-35.0); MCHC 31.9 g/dL (31.0-37.0); Mean Platelet Volume 7.1; Monocytes # (A) 0.5 k/uL (0-1.0); Monocytes % (A) 4 %; Neutrophils # (A) 12.7 k/uL (1.3-7.7); Neutrophils % (A) 90 %; RBC 4.14 m/uL (3.80-5.40); RDW 16.6 % (11.5-15.5); WBC 14.2 k/uL (3.8-10.6)
[2017-02-05] MEDS ORDERED: NALOXONE 0.4 MG/ML 1 ML VIAL IV PRN (14:00)
[2017-02-05 14:02] LABS: MCV 88.3 fL (80.0-100.0)
[2017-02-05] MEDS ORDERED: FLUTICASONE 50MCG/SPRAY NASAL 16GM EA NOSTRIL PRN (14:05)
[2017-02-05] MEDS ORDERED: NITROGLYCERIN SL TABS 0.4 MG TAB SUBLINGUAL PRN (14:05)
[2017-02-05] MEDS ORDERED: ALPRAZolam 0.25 MG TAB PO PRN (14:15)
[2017-02-05] MEDS: SODIUM CHLORIDE 0.9% 1,000 ML IV SCH (16:29)
[2017-02-05] MEDS ORDERED: TEMAZEPAM 15 MG CAP PO PRN (19:47)
[2017-02-05] MEDS ORDERED: LEVOFLOXACIN 500MG-D5W PMX 500 MG in DEXTROSE/WATER 1 100ML.BAG IVPB SCH (21:00)
[2017-02-05] MEDS ORDERED: HEPARIN SODIUM,PORCINE 5,000 UNIT/ML 1 ML VIAL SQ SCH (21:00)
[2017-02-05] MEDS: LATANOPROST 0.005% OPHTH DROPS 2.5 ML BTL BOTH EYES SCH (22:49)
[2017-02-05] MEDS: diphenhydrAMINE 50 MG CAP PO SCH (22:49)
[2017-02-05] MEDS: ATORVASTATIN 10 MG TAB PO SCH (22:50)
[2017-02-05] MEDS: PANTOPRAZOLE 40 MG/10 ML VIAL IVP SCH (22:50)
[2017-02-05] MEDS: DONEPEZIL 10 MG TAB PO SCH (22:50)
[2017-02-06] MEDS ORDERED: HYDROmorphone 1 MG/ML 1 ML SYRINGE ONE (01:55)
[2017-02-06 06:09] LABS: Anisocytosis Slight; Basophils # (A) 0.1 k/uL (0-0.2); Basophils % (A) 0 %; CH 27.5; CHCM 30.9; Eosinophils # (A) 0.1 k/uL (0-0.7); Eosinophils % (A) 1 %; HCT 33.4 % (34.0-46.0); HDW 3.22; HGB 10.8 gm/dL (11.4-16.0); Hypochromasia Moderate; Luc # (Auto) 0.15; Luc % (Auto) 1; Lymphocytes # (A) 1.1 k/uL (1.0-4.8); Lymphocytes % (A) 9 %; MCH 28.8 pg (25.0-35.0); MCHC 32.2 g/dL (31.0-37.0); MCV 89.2 fL (80.0-100.0); Mean Platelet Volume 7.5; Monocytes # (A) 0.5 k/uL (0-1.0); Monocytes % (A) 4 %; Neutrophils # (A) 10.6 k/uL (1.3-7.7); Neutrophils % (A) 85 %; RBC 3.74 m/uL (3.80-5.40); RDW 16.7 % (11.5-15.5); WBC 12.6 k/uL (3.8-10.6)
[2017-02-06 06:21] LABS: Calcium 8.5 mg/dL (8.4-10.2); Potassium 4.9 mmol/L (3.5-5.1)
[2017-02-06] MEDS: LEVOTHYROXINE 125 MCG TAB PO SCH (06:47)
[2017-02-06] MEDS: SODIUM CHLORIDE 0.9% 1,000 ML IV SCH ×2 (06:48→17:32)
--- NOTE | 2017-02-06 08:12 | P.CRDCN ---
History of Present Illness Consult date: 02/06/17 Requesting physician: Tariq Strange Reason for Consult (text): Abnormal troponins Chief complaint: Hip and back pain History of present illness: This is a pleasant 81-year-old female with known history of diabetes, hypertension, hyperlipidemia, hypothyroidism, paroxysmal atrial fibrillation, prior pulmonary embolism, she follows regularly with Dr. Huber in the office. She presents to the hospital with complaints of severe lower back and bilateral hip pain. Patient has a known history of compression fracture of L1 and mild compression fracture of T12, she states that the pain she's been experiencing recently has been worsening significantly and for this reason she came to the emergency room. She denies any chest discomfort, no palpitations, no shortness of breath. A cardiology consultation was requested because of abnormal troponins. EKG on admission here showed a sinus tachycardia, subsequent EKG performed this morning shows atrial fibrillation. Patient has a known history of paroxysmal atrial fibrillation and is on Eliquis for anticoagulation. Abdominal x-ray revealed nonobstructive bowel gas pattern. Lumbar spine x-ray revealed T12 anterior compression fracture which has progressed from January 18. Stable grade 1 L1 L2 L3 fracture. Blood pressure on arrival 106/60 heart rate was in the 120s, 96% on room air. Blood pressure this morning 125/68 with a heart rate in the 90s. White blood cell count on arrival 14.2 hemoglobin 11.7 platelet count 319, this morning white blood cell count 12.6, hemoglobin 10.8, platelets 335. Sodium 138, potassium 4.9, chloride 103, CO2 23. BUN 47, creatinine 1.9. Magnesium level 2.3. Troponins 0.041, 0.047, 0.042. At the time of my examination this morning, patient denies chest pain or shortness of breath, complains of persistent lower back discomfort. On review of patient's prior admissions, she is noted to have abnormal renal function in the past. Past Medical History Past Medical History: Atrial Fibrillation, Coronary Artery Disease (CAD), Cancer , Dementia, Diabetes Mellitus, Eye Disorder, GI Bleed, Hyperlipidemia, Hypertension, Osteoarthritis (OA), Pulmonary Embolus (PE), Thyroid Disorder Additional Past Medical History / Comment(s): 03-26-15 ADMITTED WITH AFIB RVR. OTHER HX: AUG/2012 PULMONARY EMBOLISM, Feb UPPER GI BLEED TAKEN OFF COUMADIN, 1997 R breast ca TX WITH RADIATION. GLAUCOMA BILATERAL EYES, RLS. hypothyroid. History of Any Multi-Drug Resistant Organisms: None Reported Past Surgical History: Breast Surgery, Cholecystectomy, Heart Catheterization, Orthopedic Surgery Additional Past Surgical History / Comment(s): CURRENTYLY HAVING DIFFICULTY SWALLOWING,1973 AND 1976 GANGLION CYST REMOVED L WRIST, 1976 R FOOT BONE SPUR REMOVAL, left heart catheterization in 2012 with 30-40% stenosis of the RCA and LAD, transesophageal echogram 2006, right breast biopsy 2009, cataract surgery 2009, last colonoscopy was in 2011. Past Anesthesia/Blood Transfusion Reactions: No Reported Reaction Additional Past Anesthesia/Blood Transfusion Reaction / Comment(s): PT HAD BLOOD TRANSFUSION WHEN SHE HAD A UPPER GI BLEED IN 2013. Past Psychological History: Depression Additional Psychological History / Comment(s): PT LIVES IN OWN HOME WITH . SHE USES WALKER TO GET AROUND, HAS FAMILY TO DRIVE HER TO APPOINTMENTS. Smoking Status: Former smoker - Past Family History Father Family Medical History: Coronary Artery Disease (CAD), Myocardial Infarction ([place] ) Additional Family Medical History / Comment(s): FATHER AT AGE 72 OF [place]. Mother Family Medical History: Cancer Additional Family Medical History / Comment(s): MOTHER AT AGE 76 OF UTERINE CANCER. Sister(s) Family Medical History: GERD/Reflux Brother(s) Family Medical History: Diabetes Mellitus Daughter(s) Family Medical History: No Reported History Son(s) Family Medical History: No Reported History Medications and Allergies Home Medications Medication Instructions Recorded Confirmed Type Latanoprost Ophth [Xalatan 0.005%] 1 drop BOTH EYES HS 06/17/14 02/05/17 History Multivitamins, Thera [Multivitamin 1 tab PO AC-SUPPER 06/17/14 02/05/17 History (formulary)] ALPRAZolam [Xanax] 0.25 mg PO HS PRN 05/13/15 02/05/17 History Metoprolol Succinate [Toprol XL] 50 mg PO QAM 05/13/15 02/05/17 History Nitroglycerin Sl Tabs [Nitrostat] 0.4 mg SUBLINGUAL Q5M PRN 05/13/15 02/05/17 History Furosemide [Lasix] 40 mg PO DAILY 05/26/15 02/05/17 History Spironolactone [Aldactone] 25 mg PO AC-SUPPER 05/26/15 02/05/17 History rOPINIRole HCL [Requip] 2 mg PO HS 05/26/15 02/05/17 History Amiodarone HCl [Pacerone] 100 mg PO DAILY 11/24/16 02/05/17 History Apixaban [Eliquis] 2.5 mg PO BID 11/24/16 02/05/17 History Cyanocobalamin (Vitamin B-12) 1,000 mcg PO SUTUTH 11/24/16 02/05/17 History [Vitamin B-12] Cyanocobalamin (Vitamin B-12) 500 mcg PO SA 11/24/16 02/05/17 History [Vitamin B-12] Fluticasone Nasal [place] [Flonase 2 spr EA NOSTRIL DAILY PRN 11/24/16 02/05/17 History Nasal [place]] L.acidoph,Paracasei, B.lactis 1 cap PO AC-SUPPER 11/24/16 02/05/17 History [Probiotic] Levothyroxine Sodium [Synthroid] 125 mcg PO DAILY 11/24/16 02/05/17 History Rivastigmine Tartrate [Exelon] 6 mg PO BID 11/24/16 02/05/17 History diphenhydrAMINE [Benadryl] 50 mg PO HS 11/24/16 02/05/17 History Memantine HCl [Namenda Xr] 28 mg PO DAILY 01/20/17 02/05/17 History Simvastatin [Zocor] 20 mg PO HS 01/20/17 02/05/17 History Allergies Allergy/AdvReac Type Severity Reaction Status Date / Time ELASTIC Allergy BINDS/CUTS Uncoded 02/05/17 13:59 INTO SKIN Physical Exam Vitals: Vital Signs Temp Pulse Pulse Resp BP BP Pulse Ox 02/06/17 04:00 97.1 F L 95 18 125/69 93 L 02/06/17 00:00 98.3 F 115 H 18 116/73 95 02/05/17 20:00 97.7 F 122 H 16 94/59 92 L 02/05/17 15:15 97 F L 120 H 16 114/72 95 02/05/17 14:39 118 H 16 106/72 98 02/05/17 13:00 97.6 F 123 H 18 110/68 99 07/09/17 12:00 124 H 18 142/80 98 02/05/17 11:22 125 H 16 99 02/05/17 10:10 97.0 F L 128 H 18 106/59 96 Intake and Output 02/05/17 02/06/17 02/06/17 22:59 06:59 14:59 Intake Total 180 Output Total 800 0 Balance -800 180 Intake: Oral 180 Output: Urine 800 0 Other: Weight 65.771 kg 68.7 kg PHYSICAL EXAMINATION: HEENT: Head is atraumatic, normocephalic. Pupils equal, round. Neck is supple. There is no elevated jugular venous pressure. HEART EXAMINATION: Heart S1 and S2 irregular irregular systolic murmur is heard CHEST EXAMINATION: Lungs are clear to auscultation and precussion. No chest wall tenderness is noted on palpation or with deep breathing. ABDOMEN: Soft, nontender. Bowel sounds are heard. No organomegaly noted. EXTREMITIES: 2+ peripheral pulses with no evidence of peripheral edema and no calf tenderness noted. Significant lower back pain NEUROLOGIC patient is awake, alert and oriented -3. . Results 02/07/17 04:00 02/06/17 05:41 Cardiac Enzymes 02/05/17 02/05/17 02/05/17 Range/Units 11:20 11:20 16:45 AST 25 (14-36) U/L CK-MB (CK-2) 2.0 (0.0-2.4) ng/mL Troponin I 0.041 H* 0.047 H* (0.000-0.034) ng/mL 02/05/17 Range/Units 22:35 AST (14-36) U/L CK-MB (CK-2) (0.0-2.4) ng/mL Troponin I 0.042 H* (0.000-0.034) ng/mL Coagulation 02/05/17 Range/Units 10:30 PT 11.6 (9.0-12.0) sec APTT 24.7 (22.0-30.0) sec CBC 02/05/17 02/06/17 Range/Units 13:44 05:41 WBC 14.2 H 12.6 H (3.8-10.6) k/uL RBC 4.14 3.74 L (3.80-5.40) m/uL Hgb 11.7 10.8 L (11.4-16.0) gm/dL Hct 36.6 33.4 L (34.0-46.0) % Plt Count 319 335 (150-450) k/uL Comprehensive Metabolic Panel 02/05/17 02/06/17 Range/Units 11:20 05:41 Sodium 138 138 (137-145) mmol/L Potassium 4.6 4.9 (3.5-5.1) mmol/L Chloride 106 103 (98-107) mmol/L Carbon Dioxide 19 L 23 (22-30) mmol/L BUN 39 H 47 H (7-17) mg/dL Creatinine 1.65 H 1.97 H (0.52-1.04) mg/dL Glucose 154 H 139 H (74-99) mg/dL Calcium 8.7 8.5 (8.4-10.2) mg/dL AST 25 (14-36) U/L ALT 26 (9-52) U/L Alkaline Phosphatase 114 (38-126) U/L Total Protein 7.1 (6.3-8.2) g/dL Albumin 4.1 (3.5-5.0) g/dL Current Medications Generic Name Dose Route Start Last Admin Trade Name Freq PRN Reason Stop Dose Admin Alprazolam 0.25 mg 02/05/17 14:15 Xanax PO HS PRN Anxiety Amiodarone HCl 100 mg 02/06/17 09:00 Cordarone PO DAILY DONNA Aspirin 81 mg 02/06/17 09:00 Aspirin PO DAILY DONNA Atorvastatin Calcium 10 mg 02/05/17 21:00 02/05/17 22:50 Lipitor PO 10 mg HS DONNA Administration Diphenhydramine HCl 50 mg 02/05/17 21:00 02/05/17 22:49 Benadryl PO 50 mg HS DONNA Administration Donepezil HCl 10 mg 02/05/17 21:00 02/05/17 22:50 Aricept PO 10 mg HS DONNA Administration Fluticasone Propionate 2 spray 02/05/17 14:05 Flonase Nasal [place] EA NOSTRIL DAILY PRN Runny Nose Furosemide 40 mg 02/06/17 09:00 Lasix PO DAILY DONNA Heparin Sodium (Porcine) 5,000 unit 02/05/17 21:00 02/05/17 22:51 Heparin SQ 5,000 unit Q12HR DONNA Administration Hydromorphone HCl 1 mg 02/05/17 14:00 Dilaudid IV Q3HR PRN Severe Pain Sodium Chloride 1,000 mls @ 80 mls/hr 02/05/17 14:00 02/06/17 06:48 Saline 0.9% IV 80 mls/hr .[id number] DONNA Administration Levofloxacin 500 mg/ IV 100 mls @ 100 mls/hr 02/05/17 21:00 02/05/17 23:01 Solution IVPB 100 mls/hr Q24H DONNA Administration Latanoprost 1 drops 02/05/17 21:00 02/05/17 22:49 Xalatan 0.005% BOTH EYES 1 drops HS DONNA Administration Levothyroxine Sodium 125 mcg 02/06/17 06:30 02/06/17 06:47 Synthroid PO 125 mcg DAILY@0630 DONNA Administration Memantine 10 mg 02/06/17 09:00 Namenda PO BID [facility]1983 Metoprolol Succinate 50 mg 02/06/17 09:00 Toprol Xl PO QAM [facility]1983 Multivitamins 1 each 02/06/17 09:00 Theragran PO DAILY [facility]1983 Naloxone HCl 0.2 mg 02/05/17 14:00 Narcan IV Q2M PRN Opioid Reversal Nitroglycerin 0.4 mg 02/05/17 14:05 Nitrostat SUBLINGUAL Q5M PRN Chest Pain Ondansetron HCl 4 mg 02/05/17 14:00 Zofran IVP Q8HR PRN Nausea And Vomiting Pantoprazole Sodium 40 mg 02/05/17 20:00 02/05/17 22:50 Protonix IVP 40 mg DAILY [facility] Administration Ropinirole HCl 2 mg 02/05/17 21:00 02/05/17 22:49 Requip PO 2 mg HS [facility]1983 Administration Sertraline HCl 100 mg 02/06/17 09:00 Zoloft PO QAM [facility]1983 Spironolactone 25 mg 02/06/17 09:00 Aldactone PO DAILY [facility] Temazepam 15 mg 02/05/17 19:47 Restoril PO HS PRN Insomnia Intake and Output 02/05/17 02/06/17 02/06/17 22:59 06:59 14:59 Intake Total 180 Output Total 800 0 Balance -800 180 Intake: Oral 180 Output: Urine 800 0 Other: Weight 65.771 kg 68.7 kg 02/06/17 05:41 02/06/17 05:41 EKG Interpretations (text) Initial EKG shows a sinus tachycardia, subsequent EKG shows atrial fibrillation. Assessment and Plan Plan: Assessment and plan #1 symptoms of severe lower back and bilateral hip discomfort in a patient with known compression fracture. Patient is scheduled for kyphoplasty next Monday #2 paroxysmal atrial fibrillation #3 abnormal troponin, not consistent with acute coronary syndrome, could be secondary to abnormal renal function. #4 history of pulmonary embolism #5 mild coronary artery disease, cardiac catheterization performed in 2015 2012 revealed mild obstructive coronary artery disease. #6 hypertension #7 diabetes #8 hyperlipidemia #9 hypothyroidism #10 acute on chronic renal failure Plan We will obtain an echocardiogram with Doppler study. Hold Eliquis and initiate heparin drip. Patient has not taken eliquis since Monday. . Increased dose of metoprolol tartrate to 75 mg daily. Obtain free T4 and TSH level. Further recommendations to follow.Ok to proceed with Kyphoplasty. DNP note has been reviewed, I agree with a documented findings and plan of care. Patient was seen and examined.
--- NOTE | 2017-02-06 08:45 | P.CNOR ---
History of Present Illness - [facility] Consult date: 02/06/17 Requesting physician: Tereso Akers Consult reason: fracture (T12 and L1 compression fracture deformities), low back pain History of present illness: Patient is a very pleasant 81-year-old female who is well known to our service was seen and examined at the bedside for further evaluation for significant ongoing low back pain. Patient has been seen in our office recently. She is currently scheduled to undergo a T12 and L1 kyphoplasty and biopsy scheduled for 02/13/2017. Yesterday morning she states she got up and her pain became excruciating along the lower lumbar spine radiating bilaterally over the waist line towards the lateral hips. She said she will occasionally get some pain down the leg but is unable to describe the pattern. She states generally she does not have any difficulty with the bilateral lower extremities. Her pain is most centered currently towards the lower lumbar spine radiating laterally. She denies any falls or accidents yesterday. She presented to [facility] for further evaluation. While in the emergency department, labs were taken as well as imaging. Imaging was consistent with increased depression of the T12 compression fractures compared to previous studies and evidence of an L1 fracture without significant change. Patient was found to have elevated troponin levels. Patient was discussed in detail with Sheyla DUNCAN this morning who states the patient has had episodes of elevated troponin levels previously consistent with renal dysfunction. Cardiology will perform an echocardiogram for further evaluation today, but she does not feel they're currently playing for further treatment. She currently feels patient is stable from a cardiac standpoint. Patient is on Eliquis 2.5 mg twice a day. She is scheduled to bridge prior to scheduled surgical intervention next Monday. Patient was also found to have a urinary tract infection. She has been started on Levaquin per medicine's recommendation. Patient was also previously prescribed a TLSO brace but she has discontinued wearing his brace as she found to be uncomfortable and did not provide any relief of her symptoms. Past Medical History Past Medical History: Atrial Fibrillation, Coronary Artery Disease (CAD), Cancer , Dementia, Diabetes Mellitus, Eye Disorder, GI Bleed, Hyperlipidemia, Hypertension, Osteoarthritis (OA), Pulmonary Embolus (PE), Thyroid Disorder Additional Past Medical History / Comment(s): 03-26-15 ADMITTED WITH AFIB RVR. OTHER HX: AUG/2012 PULMONARY EMBOLISM, Feb UPPER GI BLEED TAKEN OFF COUMADIN, 1997 R breast ca TX WITH RADIATION. GLAUCOMA BILATERAL EYES, RLS. hypothyroid. History of Any Multi-Drug Resistant Organisms: None Reported Past Surgical History: Breast Surgery, Cholecystectomy, Heart Catheterization, Orthopedic Surgery Additional Past Surgical History / Comment(s): CURRENTYLY HAVING DIFFICULTY SWALLOWING,1973 AND 1976 GANGLION CYST REMOVED L WRIST, 1976 R FOOT BONE SPUR REMOVAL, left heart catheterization in 2012 with 30-40% stenosis of the RCA and LAD, transesophageal echogram 2006, right breast biopsy 2009, cataract surgery 2009, last colonoscopy was in 2011. Past Anesthesia/Blood Transfusion Reactions: No Reported Reaction Additional Past Anesthesia/Blood Transfusion Reaction / Comm: PT HAD BLOOD TRANSFUSION WHEN SHE HAD A UPPER GI BLEED IN 2013. Past Psychological History: Depression Additional Psychological History / Comment(s): PT LIVES IN OWN HOME WITH . SHE USES WALKER TO GET AROUND, HAS FAMILY TO DRIVE HER TO APPOINTMENTS. Smoking Status: Former smoker - Past Family History Father Family Medical History: Coronary Artery Disease (CAD), Myocardial Infarction ([place] ) Additional Family Medical History / Comment(s): FATHER AT AGE 72 OF [place]. Mother Family Medical History: Cancer Additional Family Medical History / Comment(s): MOTHER AT AGE 76 OF UTERINE CANCER. Sister(s) Family Medical History: GERD/Reflux Brother(s) Family Medical History: Diabetes Mellitus Daughter(s) Family Medical History: No Reported History Son(s) Family Medical History: No Reported History Medications and Allergies Home Medications Medication Instructions Recorded Confirmed Type Latanoprost Ophth [Xalatan 0.005%] 1 drop BOTH EYES HS 06/17/14 02/05/17 History Multivitamins, Thera [Multivitamin 1 tab PO AC-SUPPER 06/17/14 02/05/17 History (formulary)] ALPRAZolam [Xanax] 0.25 mg PO HS PRN 05/13/15 02/05/17 History Metoprolol Succinate [Toprol XL] 50 mg PO QAM 05/13/15 02/05/17 History Nitroglycerin Sl Tabs [Nitrostat] 0.4 mg SUBLINGUAL Q5M PRN 05/13/15 02/05/17 History Furosemide [Lasix] 40 mg PO DAILY 05/26/15 02/05/17 History Spironolactone [Aldactone] 25 mg PO AC-SUPPER 05/26/15 02/05/17 History rOPINIRole HCL [Requip] 2 mg PO HS 05/26/15 02/05/17 History Amiodarone HCl [Pacerone] 100 mg PO DAILY 11/24/16 02/05/17 History Apixaban [Eliquis] 2.5 mg PO BID 11/24/16 02/05/17 History Cyanocobalamin (Vitamin B-12) 1,000 mcg PO SUTUTH 11/24/16 02/05/17 History [Vitamin B-12] Cyanocobalamin (Vitamin B-12) 500 mcg PO SA 11/24/16 02/05/17 History [Vitamin B-12] Fluticasone Nasal [place] [Flonase 2 spr EA NOSTRIL DAILY PRN 11/24/16 02/05/17 History Nasal [place]] L.acidoph,Paracasei, B.lactis 1 cap PO AC-SUPPER 11/24/16 02/05/17 History [Probiotic] Levothyroxine Sodium [Synthroid] 125 mcg PO DAILY 11/24/16 02/05/17 History Rivastigmine Tartrate [Exelon] 6 mg PO BID 11/24/16 02/05/17 History diphenhydrAMINE [Benadryl] 50 mg PO HS 11/24/16 02/05/17 History Memantine HCl [Namenda Xr] 28 mg PO DAILY 01/20/17 02/05/17 History Simvastatin [Zocor] 20 mg PO HS 01/20/17 02/05/17 History Allergies Allergy/AdvReac Type Severity Reaction Status Date / Time ELASTIC Allergy BINDS/CUTS Uncoded 02/05/17 13:59 INTO SKIN Physical Examination Physical exam: Patient is awake, alert, and oriented 3 Vital signs stable Good chest excursion with deep inspiration and expiration Abdomen soft nontender Examination of lumbar spine reveals skin is intact with no abrasions, lacerations, or bruises; no erythema, purulence or signs of infection No pain with palpation along the thoracolumbar junction Pain with palpation along the midline of the lower lumbar spine and over the waistline bilaterally Dorsiflexion, plantarflexion, and extensor hallucis longus positive sustained bilaterally Lower extremity strength 5/5 bilaterally Some increased right lateral hip pain with elevation of the right leg No signs or symptoms of DVT; no calf pain No pain with internal and external rotation of the hips bilaterally Neurovascularly intact Results Pertinent studies: X-rays lumbar spine: T12 superior endplate compression fracture deformity with approximate 40% height loss that has progressed as compared to previous study taken on 01/18/2017; L1 superior endplate compression fracture deformity with approximately 10% height loss; L1-2 and L2-3 grade 1 retrolisthesis - Labs Labs: Abnormal Lab Results - Last 24 Hours (Table) 02/05/17 02/05/17 02/05/17 Range/Units 10:45 11:20 11:20 WBC (3.8-10.6) k/uL RBC (3.80-5.40) m/uL Hgb (11.4-16.0) gm/dL Hct (34.0-46.0) % RDW (11.5-15.5) % Neutrophils # (1.3-7.7) k/uL Lymphocytes # (1.0-4.8) k/uL Carbon Dioxide 19 L (22-30) mmol/L BUN 39 H (7-17) mg/dL Creatinine 1.65 H (0.52-1.04) mg/dL Glucose 154 H (74-99) mg/dL Troponin I 0.041 H* (0.000-0.034) ng/mL Urine Protein Trace H (Negative) Ur Leukocyte Esterase Large H (Negative) Urine WBC 22 H (0-5) /hpf Urine Mucus Rare H (None) /hpf 02/05/17 02/05/17 02/05/17 Range/Units 13:44 16:45 22:35 WBC 14.2 H (3.8-10.6) k/uL RBC (3.80-5.40) m/uL Hgb (11.4-16.0) gm/dL Hct (34.0-46.0) % RDW 16.6 H (11.5-15.5) % Neutrophils # 12.7 H (1.3-7.7) k/uL Lymphocytes # 0.7 L (1.0-4.8) k/uL Carbon Dioxide (22-30) mmol/L BUN (7-17) mg/dL Creatinine (0.52-1.04) mg/dL Glucose (74-99) mg/dL Troponin I 0.047 H* 0.042 H* (0.000-0.034) ng/mL Urine Protein (Negative) Ur Leukocyte Esterase (Negative) Urine WBC (0-5) /hpf Urine Mucus (None) /hpf 02/06/17 02/06/17 Range/Units 05:41 05:41 WBC 12.6 H (3.8-10.6) k/uL RBC 3.74 L (3.80-5.40) m/uL Hgb 10.8 L (11.4-16.0) gm/dL Hct 33.4 L (34.0-46.0) % RDW 16.7 H (11.5-15.5) % Neutrophils # 10.6 H (1.3-7.7) k/uL Lymphocytes # (1.0-4.8) k/uL Carbon Dioxide (22-30) mmol/L BUN 47 H (7-17) mg/dL Creatinine 1.97 H (0.52-1.04) mg/dL Glucose 139 H (74-99) mg/dL Troponin I (0.000-0.034) ng/mL Urine Protein (Negative) Ur Leukocyte Esterase (Negative) Urine WBC (0-5) /hpf Urine Mucus (None) /hpf H & H 02/05/17 02/06/17 Range/Units 13:44 05:41 Hgb 11.7 10.8 L (11.4-16.0) gm/dL Hct 36.6 33.4 L (34.0-46.0) % Coagulation 02/05/17 Range/Units 10:30 INR 1.2 (<1.1) Result Diagrams: 02/06/17 05:41 02/06/17 05:41 Assessment and Plan (1) Compression fracture of L1 lumbar vertebra Status: Acute (2) Urinary tract infection Status: Acute (3) Retrolisthesis of vertebrae Status: Acute (4) History of atrial fibrillation Status: Acute (5) Elevated troponin Status: Acute (6) Intractable back pain Status: Acute (7) T12 compression fracture Status: Acute Plan: Assessment: Low back pain radiating across the waistline bilaterally T12 compression fracture deformity L1 compression fracture deformity L1-2 and L2-3 grade 1 retrolisthesis Urinary tract infection Elevated troponin levels History of paroxysmal atrial fibrillation currently on Eliquis for anticoagulation Plan: 1. Patient will be discussed in detail with Dr. Bashir Garcia. Patient does have evidence of compression fractures at T12 and L1. She is currently scheduled for kyphoplasty with biopsy at T12 and L1 next 02/13/2017. Based on her current Eliquis use, we will not currently plan for acute surgical intervention earlier than her scheduled date of 02/13/2017. She'll plan to continue with Eliquis with a bridge medication as prescribed prior to her scheduled surgery. Since presented to the hospital, patient has been diagnosed with a urinary tract infection and is currently receiving Levaquin for treatment. She has been receiving Dilaudid every 3 hours IV push as needed for pain control. At this time, we'll plan to add [place] 5 mg/325 mg 1 tab every 6 hours as needed for pain. Patient was also previously prescribed a TLSO brace but she has discontinued wearing this brace as she feels it's uncomfortable and has not helped control her symptoms. She should avoid excessive bending, twisting, lifting in regards to her thoracolumbar spine. We'll continue to follow the patient. 2. Cardiology will continue to follow patient; Patient is scheduled to undergo an echocardiogram today 3. Dr. Tariq Strange in medicine will continue to follow the patient for her other medical diagnoses including treatment for her urinary tract infection Time with Patient: Less than 30
[2017-02-06] MEDS ORDERED: APIXABAN 2.5 MG TABLET PO SCH (09:00)
[2017-02-06] MEDS ORDERED: METOPROLOL SUCCINATE (ER) 50 MG TAB.ER.24H PO SCH (09:00)
[2017-02-06] MEDS: HYDROcodone/APAP 5-325MG 1 EACH TAB PO PRN (09:03)
[2017-02-06] MEDS: SERTRALINE 100 MG TAB PO SCH (09:06)
[2017-02-06] MEDS: ASPIRIN 81 MG CHEW PO SCH (09:06)
[2017-02-06] MEDS: MEMANTINE 10 MG TAB PO SCH ×2 (09:06→21:54)
[2017-02-06] MEDS: SPIRONOLACTONE 25 MG TAB PO SCH (09:06)
[2017-02-06] MEDS: FUROSEMIDE 40 MG TAB PO SCH (09:07)
[2017-02-06] MEDS: MULTIVITAMINS, THERA 1 EACH TAB PO SCH (09:07)
[2017-02-06] MEDS: AMIODARONE 100 MG TAB PO SCH (09:07)
[2017-02-06] MEDS: METOPROLOL SUCCINATE (ER) 25 MG TAB.ER.24H PO SCH (09:08)
[2017-02-06] MEDS: PANTOPRAZOLE 40 MG/10 ML VIAL IVP SCH (09:09)
[2017-02-06] MEDS ORDERED: HEPARIN SODIUM,PORCINE 5,000 UNIT/ML 1 ML VIAL IV PRN (09:21)
[2017-02-06 09:52] LABS: Anisocytosis Slight; Basophils # (A) 0.1 k/uL (0-0.2); Basophils % (A) 1 %; CH 27.8; CHCM 30.9; Eosinophils # (A) 0.1 k/uL (0-0.7); Eosinophils % (A) 1 %; HCT 33.3 % (34.0-46.0); HDW 3.18; HGB 10.4 gm/dL (11.4-16.0); Hypochromasia Moderate; Luc # (Auto) 0.15; Luc % (Auto) 1; Lymphocytes # (A) 0.9 k/uL (1.0-4.8); Lymphocytes % (A) 7 %; MCH 28.3 pg (25.0-35.0); MCHC 31.3 g/dL (31.0-37.0); MCV 90.4 fL (80.0-100.0); Mean Platelet Volume 7.4; Monocytes # (A) 0.4 k/uL (0-1.0); Monocytes % (A) 4 %; Neutrophils # (A) 10.5 k/uL (1.3-7.7); Neutrophils % (A) 87 %; RBC 3.69 m/uL (3.80-5.40); RDW 16.7 % (11.5-15.5); WBC 12.1 k/uL (3.8-10.6); WBC (Perox) 12.08
[2017-02-06] MEDS: HEPARIN SODIUM,PORCINE/D5W PMX 25,000 UNIT in DEXTROSE/WATER 1 500ML.BAG IV SCH (09:58)
[2017-02-06 10:02] LABS: INR 1.1 (<1.1); Partial Thromboplastin Time 23.9 sec (22.0-30.0)
[2017-02-06] MEDS: HYDROmorphone 1 MG/ML 1 ML SYRINGE IV PRN (15:18)
[2017-02-06] MEDS: DIAZEPAM 5 MG TAB PO PRN (17:38)
[2017-02-06] MEDS: ATORVASTATIN 10 MG TAB PO SCH (21:54)
[2017-02-06] MEDS: DONEPEZIL 10 MG TAB PO SCH (21:54)
[2017-02-06] MEDS: diphenhydrAMINE 50 MG CAP PO SCH (21:54)
[2017-02-06] MEDS: LATANOPROST 0.005% OPHTH DROPS 2.5 ML BTL BOTH EYES SCH (21:56)
[2017-02-07] MEDS: HYDROmorphone 1 MG/ML 1 ML SYRINGE IV PRN (02:18)
[2017-02-07 04:39] LABS: Anisocytosis Slight; Basophils % (A) 0 %; CH 27.1; CHCM 30.2; Eosinophils # (A) 0.1 k/uL (0-0.7); Eosinophils % (A) 0 %; HCT 33.2 % (34.0-46.0); HDW 3.13; HGB 10.5 gm/dL (11.4-16.0); Hypochromasia Marked; Luc # (Auto) 0.12; Luc % (Auto) 1; Lymphocytes # (A) 0.9 k/uL (1.0-4.8); Lymphocytes % (A) 8 %; MCH 28.5 pg (25.0-35.0); MCHC 31.6 g/dL (31.0-37.0); Mean Platelet Volume 7.4; Monocytes # (A) 0.5 k/uL (0-1.0); Monocytes % (A) 4 %; Neutrophils # (A) 9.9 k/uL (1.3-7.7); Neutrophils % (A) 86 %; RBC 3.69 m/uL (3.80-5.40); RDW 16.8 % (11.5-15.5); WBC 11.5 k/uL (3.8-10.6); WBC (Perox) 11.24
--- NOTE | 2017-02-07 04:46 | HP ---
I am covering for Dr. Strange. CHIEF COMPLAINTS: Back and abdominal pain. HISTORY OF PRESENT ILLNESS: This is an 81-year-old woman with a past medical history of T12 anterior compression fracture was scheduled for surgery for Dr. Garcia. The patient complaining of severe back pain, which is radiating to the anterior part of the abdomen. The patient associated with nausea also. The patient came to [facility] and admitted for further evaluation and treatment. The x-ray showed the fracture progressed from 6/21 to 40% anterior height loss, but stable retrolisthesis L1-L2 was noted. There is no history of any fever, rigors. No history of headache, loss of consciousness or seizures. The patient also had troponin elevated up to 0.04 and patient also has features of UTI also. PAST MEDICAL HISTORY: History of recent T12 fracture, scheduled for surgery, atrial fibrillation, dementia, diabetes mellitus, hypertension, hyperlipidemia, history of pulmonary embolism. Medications prior to admission include: 1. Requip 2 mg q.h.s. 2. Benadryl 50 mg q.h.s. 3. Aldactone 25 mg a.c. supper. 4. Zocor 20 mg q.h.s. 5. Zoloft 100 mg q.a.m. 6. Exelon 6 mg. 7. Nitrostat 0.4 sublingual p.r.n. 8. Multivitamin 1 p.o. daily. 9. Toprol XL 50 mg q.a.m. 10. Namenda XR 28 mg p.o. daily. 11. Synthroid 125 mcg p.o. daily. 12. Xalatan 0.005% one drop both eyes. 13. Probiotic 1 capsule a.c. supper. 14. Lasix 40 mg daily. 15. Flonase 2 sprays daily p.r.n. 16. Vitamin B12, 1000 mcg p.o. . 17. Eliquis 2.5 mg b.i.d. 18. Pacerone 100 mg p.o. daily. 19. Xanax 0.25 q.h.s. p.r.n. ALLERGIES: ELASTIC. FAMILY HISTORY: History of CAD, myocardial infarction per chart. SOCIAL HISTORY: Previous history of smoking. REVIEW OF SYSTEMS: ENT: No diminished hearing or diminished vision. CARDIOVASCULAR SYSTEM: As mentioned earlier. No angina. RESPIRATORY SYSTEM: No cough. GI: As mentioned earlier. : No dysuria. NERVOUS SYSTEM: No numbness, otherwise, as mentioned. ALLERGIES/IMMUNOLOGY: No history of asthma or hayfever. MUSCULOSKELETAL: As mentioned earlier. HEMATOLOGY/ONCOLOGY: No history of anemia. ENDOCRINE: History of diabetes and hypothyroidism. CONSTITUTIONAL: As mentioned earlier. DERMATOLOGY: Negative. RHEUMATOLOGY: Negative. PSYCHIATRY: As mentioned earlier. PHYSICAL EXAMINATION: The patient is alert and oriented x3. Pulse 120, blood pressure 114/72, respirations 16, temperature is 97 degrees, pulse ox 94% on room air. HEENT: Conjunctivae normal. Oral mucosa moist. NECK: No jugular venous distention. No carotid bruit. No lymph node enlargement. CARDIOVASCULAR: S1 and S2, muffled. No S3, no S4. RESPIRATORY: Breath sounds diminished at the bases. A few scattered rhonchi and crackles. Abdomen is soft, nontender. No mass palpable. EXAMINATION OF THE BACK: Some tenderness present. LEGS: No edema. No swelling. NERVOUS SYSTEM: Higher function as mentioned. Moves all 4 limbs. No focal motor or sensory deficits. LYMPHATICS: No lymphadenopathy of the neck, axillae or groin. SKIN: No ulcers, rashes or bleeding. LABS: WBC 14.2. Creatinine 1.65. Troponin noted. ASSESSMENT: 1. Severe back pain, acute on chronic with T12 anterior compression fracture with some progression recently. 2. Stable grade I retrolisthesis L1-L2, L2-L3. 3. Chronic kidney disease, stage III. 4. Troponin 0.01 indeterminate. 5. Increased WBC. 6. Urinary tract infection, possibly present on admission. 7. History of atrial fibrillation. 8. History of coronary artery disease. 9. History of dementia. 10. Diabetes mellitus type 2. 11. History of pulmonary embolism. RECOMMENDATIONS AND DISCUSSION: In this 81-year-old woman who presented with multiple complex medical issues, will monitor the patient closely. Continue the current medications, continue symptomatic treatment. I would recommend symptomatic treatment with Dilaudid and I would also recommend cultures and course of empiric antibiotics also. Otherwise, Dr. Garcia and Cardiology consulted. Prognosis guarded. See orders for details. Further recommendations to follow. [facility]
[2017-02-07] MEDS: LEVOTHYROXINE 125 MCG TAB PO SCH (06:51)
[2017-02-07] MEDS: SODIUM CHLORIDE 0.9% 1,000 ML IV SCH ×2 (06:51→21:08)
[2017-02-07] MEDS: HYDROcodone/APAP 5-325MG 1 EACH TAB PO PRN ×2 (07:57→12:47)
[2017-02-07] MEDS: ONDANSETRON 4 MG/2 ML VIAL IVP PRN (07:57)
--- NOTE | 2017-02-07 09:05 | P.PN ---
<Oscar Valdez - Last Filed: 02/07/17 09:01> Progress Note - Text Patient is a very pleasant 81-year-old female who is well known to our service was seen and examined at the bedside for follow-up evaluation for significant ongoing low back pain. Her family is present at the bedside. Patient states she has not had any improvement of her symptoms since being seen and examined yesterday. She continues to have significant pain along the lower lumbar spine radiating bilaterally over the waist line towards the lateral hips. She said she will occasionally get some pain down the leg but is unable to describe the pattern. She states generally she does not have any difficulty with the bilateral lower extremities. At this time, she feels she is feeling conservative treatment would like to her seat forward with surgical intervention while she is admitted to the hospital if she is able to be cleared by cardiology. Patient and her family states she was seen and examined by Dr. Tariq Strange in medicine who has cleared her from a general medicine standpoint. She is currently scheduled to undergo a T12 and L1 kyphoplasty and biopsy scheduled for 02/13/2017. Patient elected to proceed forward with this surgery earlier if she is able to do so. Patient was able to undergo an echocardiogram yesterday. The results are still pending. Patient has been discussed in detail with Sheyla DUNCAN this morning who states that echocardiogram results should be available today. Patient is known to be on Eliquis 2.5 mg twice a day. This medicine has been discontinued while the patient has been in the hospital and she has been started on heparin as a bridge prior to surgical intervention. Her family states her last known intake of Eliquis was on 02/04/2017. Cardiology feels as long as there is not evidence of significant change with her echocardiogram, it would be appropriate for her to proceed forward with surgery on , 02/09/2017. Heparin would have to be stopped prior to surgical intervention. Patient was also found to have a urinary tract infection. She continues to receive Levaquin per medicine's recommendation. Patient was also previously prescribed a TLSO brace but she has discontinued wearing his brace as she found to be uncomfortable and did not provide any relief of her symptoms. Physical exam: Patient is awake, alert, and oriented 3 Vital signs stable Good chest excursion with deep inspiration and expiration Abdomen soft nontender Examination of lumbar spine reveals skin is intact with no abrasions, lacerations, or bruises; no erythema, purulence or signs of infection No pain with palpation along the thoracolumbar junction Pain with palpation along the midline of the lower lumbar spine and over the waistline bilaterally Dorsiflexion, plantarflexion, and extensor hallucis longus positive sustained bilaterally Lower extremity strength 5/5 bilaterally Some increased right lateral hip pain with elevation of the right leg No signs or symptoms of DVT; no calf pain No pain with internal and external rotation of the hips bilaterally Neurovascularly intact Pertinent studies: X-rays lumbar spine: T12 superior endplate compression fracture deformity with approximate 40% height loss that has progressed as compared to previous study taken on 01/18/2017; L1 superior endplate compression fracture deformity with approximately 10% height loss; L1-2 and L2-3 grade 1 retrolisthesis Assessment: Low back pain radiating across the waistline bilaterally T12 compression fracture deformity L1 compression fracture deformity L1-2 and L2-3 grade 1 retrolisthesis Urinary tract infection Elevated troponin levels History of paroxysmal atrial fibrillation currently on heparin bridge for anticoagulation Plan: 1. Patient does have evidence of compression fractures at T12 and L1. She is currently scheduled for kyphoplasty with biopsy at T12 and L1 next Monday, 02/13. At this time, Eliquis has been discontinued while the patient is here in the hospital and she has been started on heparin bridge. We will currently wait for further reading of the echocardiogram to be performed. If there are no significant changes with her echocardiogram, cardiology feels patient may be ready to proceed for surgery as early as this , 02/09/2017. Patient will also continue be followed by Dr. Tariq Strange in medicine for further treatment and evaluation. Since presented to the hospital, patient has been diagnosed with a urinary tract infection and is currently receiving Levaquin for treatment. Patient will be discussed in detail with Dr. Bashir Garcia possibly proceeding forward with surgical intervention earlier than scheduled. After further discussion with Dr. Bashir Garcia, we will adjust our plan of care accordingly. 2. Continue pain control with oral and IV pain medications 3. Cardiology will continue to follow patient; echocardiogram will be read today. 4. Dr. Tariq Strange in medicine will continue to follow the patient for her other medical diagnoses including treatment for her urinary tract infection <Noam Garcia - Last Filed: 02/08/17 15:16> Progress Note - Text Patient is seen and examined today at bedside. She is alert and answering questions but she is not exactly sure of the time. She continues to have significant pain at her mid back. She is not having problems in her lower extremity. She denies any fevers or chills. She denies any chest pain or shortness of breath. The patient has a acute compression fracture at T12 and a subacute or chronic compression fracture at L1 which are causing her significant pain in her back. We had seen her as an outpatient and discussed different treatment options including kyphoplasty with her. Since that time she was admitted to the hospital and it was having workup in regards to elevated troponins. She has been stabilized with medicine and cardiology service and she is improving steadily. She is not apparently having any acute cardiac issues and she has been cleared by cardiology to proceed with the proposed surgery of kyphoplasty at T12 and L1. She was having some confusion overnight and does have some history of dementia I was able to explain to her into her family at length the nature of the issues in her back and the proposed surgical intervention. We discussed the risk, patient's alternatives and benefits of her surgery in regards to her injury and they elected to proceed with surgical intervention as soon as possible. We have The patient nothing by mouth, she has been off of her blood thinners, and we plan to proceed with surgery this afternoon. She has signed informed consent.
[2017-02-07] MEDS: SPIRONOLACTONE 25 MG TAB PO SCH (09:31)
[2017-02-07] MEDS: MEMANTINE 10 MG TAB PO SCH ×2 (09:31→21:08)
[2017-02-07] MEDS: ASPIRIN 81 MG CHEW PO SCH (09:32)
[2017-02-07] MEDS: FUROSEMIDE 40 MG TAB PO SCH (09:32)
[2017-02-07] MEDS: AMIODARONE 100 MG TAB PO SCH (09:32)
[2017-02-07] MEDS: PANTOPRAZOLE 40 MG/10 ML VIAL IVP SCH (09:33)
[2017-02-07] MEDS: SERTRALINE 100 MG TAB PO SCH (09:33)
[2017-02-07] MEDS: METOPROLOL SUCCINATE (ER) 25 MG TAB.ER.24H PO SCH (09:35)
--- NOTE | 2017-02-07 11:11 | ECHOF ---
Referral Reason: MEASUREMENTS -------- HEIGHT: 157.5 cm WEIGHT: 68.5 kg BP: 103/60 RVIDd: 2.6 cm (< 3.3) IVSd: 1.2 cm (0.6 - 1.1) LVIDd: 3.5 cm (3.9 - 5.3) LVPWd: 1.3 cm (0.6 - 1.1) IVSs: 1.5 cm LVIDs: 2.3 cm LVPWs: 1.9 cm LAESV Index (A-L): 36.48 ml/m Ao Diam: 2.8 cm (2.0 - 3.7) AV Cusp: 1.4 cm (1.5 - 2.6) LA Diam: 4.2 cm (2.7 - 3.8) RAP: 5.00 mmHg RVSP: 91.06 mmHg FINDINGS -------- Atrial fibrillation. This was a technically adequate study. There is mild concentric left ventricular hypertrophy. Overall left ventricular systolic function is low-normal with, an EF between 50 - 55 %. The right ventricular systolic function is mildly impaired. The right ventricular septal wall is flattened in systole which is consistent with right ventricular pressure overload. LA is moderately dilated 34-39 ml/m2 The right atrium is mildly enlarged. Aortic valve is trileaflet and is mildly thickened. There is no evidence of aortic regurgitation. The mitral valve leaflets are mildly thickened. Mild mitral regurgitation is present. Severe tricuspid regurgitation present. There is severe pulmonary hypertension. The right ventricular systolic pressure, as measured by Doppler, is 91.06mmHg. Trace/mild (physiologic) pulmonic regurgitation. The aortic root size is normal. Normal inferior vena cava with normal inspiratory collapse consistent with estimated right atrial pressure of 5 mmHg. There is no pericardial effusion. CONCLUSIONS -------- 1. Atrial fibrillation. 2. The mitral valve leaflets are mildly thickened. 3. Mild mitral regurgitation is present. 4. Severe tricuspid regurgitation present. 5. The right ventricular systolic pressure, as measured by Doppler, is 91.06mmHg. 6. Trace/mild (physiologic) pulmonic regurgitation. 7. The aortic root size is normal. 8. There is no pericardial effusion. 9. This was a technically adequate study. 10. There is mild concentric left ventricular hypertrophy. 11. Overall left ventricular systolic function is low-normal with, an EF between 50 - 55 %. 12. The right ventricular systolic function is mildly impaired. 13. The right ventricular septal wall is flattened in systole which is consistent with right ventricular pressure overload. 14. LA is moderately dilated 34-39 ml/m2 15. The right atrium is mildly enlarged. 16. Aortic valve is trileaflet and is mildly thickened. CLAIMS ADJUDICATOR: Ady Jain RDCS
[2017-02-07] MEDS: HEPARIN SODIUM,PORCINE/D5W PMX 25,000 UNIT in DEXTROSE/WATER 1 500ML.BAG IV SCH (12:09)
[2017-02-07] MEDS: MULTIVITAMINS, THERA 1 EACH TAB PO SCH (12:47)
[2017-02-07] MEDS: DIAZEPAM 5 MG TAB PO PRN (15:22)
[2017-02-07] MEDS ORDERED: LORazepam 2 MG/ML SYRINGE IV PRN (17:48)
[2017-02-07] MEDS ORDERED: HYDROmorphone 1 MG/ML 1 ML SYRINGE IV PRN (18:51)
[2017-02-07] MEDS: LEVOFLOXACIN 250 MG TAB PO SCH (21:08)
[2017-02-07] MEDS: diphenhydrAMINE 50 MG CAP PO SCH (21:08)
[2017-02-07] MEDS: DONEPEZIL 10 MG TAB PO SCH (21:08)
[2017-02-07] MEDS: ATORVASTATIN 10 MG TAB PO SCH (21:08)
[2017-02-07] MEDS: LATANOPROST 0.005% OPHTH DROPS 2.5 ML BTL BOTH EYES SCH (21:11)
--- NOTE | 2017-02-07 22:11 | PN ---
Mrs. Swanson is a lady with atrial fibrillation. She has been admitted with borderline troponin elevation, which I do not believe represents myocardial injury. She is complaining of severe back pain. There is no contraindication for kyphoplasty. Risk is moderated. Discussed with Dr. Garcia. On physical exam there are no new significant findings. Vital signs are stable. S1, S2 heard normally. Irregular rhythm noted. Lungs reveal decent air entry. Abdomen and lower extremity exam unchanged. Patient is off Eliquis since Monday. She can go ahead with the kyphoplasty, and there is no contraindication. Advise cautious fluid administration and optimal blood pressure control perioperatively. MTDD
[2017-02-08] MEDS ORDERED: MIDAZOLAM 2 MG/2 ML VIAL IV PRN (06:01)
[2017-02-08 06:04] LABS: Anisocytosis Slight; Basophils % (A) 0 %; CH 27.4; CHCM 31.1; Eosinophils # (A) 0.1 k/uL (0-0.7); Eosinophils % (A) 1 %; HDW 3.16; HGB 9.9 gm/dL (11.4-16.0); Hypochromasia Moderate; Luc % (Auto) 1; Lymphocytes # (A) 0.8 k/uL (1.0-4.8); Lymphocytes % (A) 7 %; MCH 28.3 pg (25.0-35.0); MCHC 32.1 g/dL (31.0-37.0); MCV 88.2 fL (80.0-100.0); Mean Platelet Volume 7.6; Monocytes # (A) 0.5 k/uL (0-1.0); Monocytes % (A) 5 %; Neutrophils % (A) 87 %; RBC 3.51 m/uL (3.80-5.40); RDW 16.8 % (11.5-15.5); WBC 11.5 k/uL (3.8-10.6); WBC (Perox) 11.36
[2017-02-08] MEDS: SODIUM CHLORIDE 0.9% 1,000 ML IV SCH ×3 (06:47→22:23)
[2017-02-08] MEDS: LEVOTHYROXINE 125 MCG TAB PO SCH (06:47)
[2017-02-08 07:50] LABS: Appearance,Urine Clear (Clear); Bilirubin,Urine Negative (Negative); Glucose,Urine (UA) Negative (Negative); Ketones,Urine Negative (Negative); Leukocyte Esterase,Urine Moderate (Negative); Mucus,Urine Rare /hpf; Nitrite,Urine Negative (Negative); Particle Count 2281; Protein,Urine Trace (Negative); RBC,Urine 1 /hpf (0-5); Specific Gravity,Urine 1.014 (1.001-1.035); Squamous Epithelial Cell,Urine 1 /hpf (0-4); UA Billing (MACRO vs. MICRO) MICRO; Urobilinogen,Urine <2.0 mg/dL (<2.0); WBC,Urine 5 /hpf (0-5)
[2017-02-08] MEDS: HYDROcodone/APAP 5-325MG 1 EACH TAB PO PRN ×2 (09:16→19:32)
[2017-02-08] MEDS: AMIODARONE 100 MG TAB PO SCH (09:41)
[2017-02-08] MEDS: METOPROLOL SUCCINATE (ER) 25 MG TAB.ER.24H PO SCH (09:41)
[2017-02-08] MEDS: ASPIRIN 81 MG CHEW PO SCH (09:45)
[2017-02-08] MEDS: MEMANTINE 10 MG TAB PO SCH (09:45)
[2017-02-08] MEDS: SPIRONOLACTONE 25 MG TAB PO SCH (09:45)
[2017-02-08] MEDS: FUROSEMIDE 40 MG TAB PO SCH (09:45)
[2017-02-08] MEDS: SERTRALINE 100 MG TAB PO SCH (09:45)
[2017-02-08] MEDS: MULTIVITAMINS, THERA 1 EACH TAB PO SCH (09:45)
[2017-02-08] MEDS: HEPARIN SODIUM,PORCINE/D5W PMX 25,000 UNIT in DEXTROSE/WATER 1 500ML.BAG IV SCH (09:46)
[2017-02-08] MEDS: PANTOPRAZOLE 40 MG/10 ML VIAL IVP SCH (12:02)
[2017-02-08] MEDS: LACTATED RINGERS 1,000 ML IV SCH (12:03)
[2017-02-08] MEDS ORDERED: IV FLUID CONTINUATION 1,000 ML IV ONE (14:49)
[2017-02-08] MEDS: ONDANSETRON 4 MG/2 ML VIAL IVP PRN (15:01)
[2017-02-08] MEDS ORDERED: LIDOCAINE 1% INJ 10MG/ML (20 ML MDV) ONE (15:40)
[2017-02-08] MEDS ORDERED: SUCCINYLCHOLINE CHLORIDE 100 MG/5 ML SYR IV ONE (15:40)
[2017-02-08] MEDS ORDERED: PHENYLEPHRINE-0.9% NACL SYG 1 MG/10 ML SYRINGE ONE (15:40)
[2017-02-08] MEDS ORDERED: PROPOFOL 10 MG/ML 20 ML VIAL IV ONE (15:40)
[2017-02-08] MEDS ORDERED: SODIUM CHLORIDE 0.9% 100 ML with ceFAZolin 2,000 MG IV ONE ×2 (16:04)
[2017-02-08] MEDS ORDERED: IOHEXOL 180 MG/ML 1 ML ML MISCELLANE ONE (16:08)
[2017-02-08] MEDS ORDERED: BUPIVACAINE (PF) 0.5% 30 ML VIAL SQ ONE (16:08)
[2017-02-08] MEDS ORDERED: LACTATED RINGERS 1,000 ML IV ONE (16:30)
--- NOTE | 2017-02-08 16:35 | PN ---
Mrs. Swanson is in atrial fib, controlled rate, doing well, going for kyphoplasty this afternoon. Vital signs are stable. S1, S2 heard normally. Irregularly rhythm noted. Lungs are clear. Abdomen and lower extremity examination unchanged. She is off Eliquis and can go ahead with the procedure. CHATA
[2017-02-08] MEDS ORDERED: HYDROmorphone 1 MG/ML 1 ML SYRINGE IVP PRN (16:56)
[2017-02-08] MEDS ORDERED: BENZOCAINE/MENTHOL LOZENG 1 EACH LOZENGE MUCOUS MEM PRN (16:56)
[2017-02-08] MEDS ORDERED: MAGNESIUM HYDROXIDE 2,400 MG/10 ML CUP PO PRN (16:56)
--- NOTE | 2017-02-08 17:04 | P.OP ---
Date of Procedure: 02/08/17 Preoperative Diagnosis: T12 and L1 subacute vertebral compression fracture, pathologic due to osteoporosis Postoperative Diagnosis: Same Procedure(s) Performed: Implants: Anesthesia: GETA Pathology: other (T12 and L1 vertebral body biopsy sent to pathology) Condition: stable Disposition: PACU Indications for Procedure: Operative Findings: Description of Procedure: BRIEF OPERATIVE NOTE Preoperative Diagnosis: Vertebral compression fractures T12 and L1, pathologic due to osteoporosis, subcu Postoperative Diagnosis: Same Procedure: Kyphoplasty T12 and L1, with insertion of vertebral bone cement Vertebral body biopsy T12 and L1 Use of biplanar fluoroscopic guidance Surgeon: Dr. Garcia Physics Technician: None Anesthesia: General anesthesia per Dr. Mandel Estimated blood loss: Less than 50 mL Specimen: Vertebral body biopsy sent to pathology in formalin of T12 and L1 vertebral body Complications: None apparent Components implanted: Bone cement Disposition: To recovery room in good stable condition. OPERATIVE INDICATIONS The patient has been having issues in their back ever since sustaining a low energy injury. She is found a compression fractures with a low energy injury and her osteoporosis. The patient has been through conservative treatment with attempts of bracing. They attempted conservative care with bracing however they 're not having any benefit despite brace use. They continue to have significant pain and debility due to their fracture. The patient had been scheduled for outpatient vertebral kyphoplasty at T12-L1 but presented this week to the hospital. She is having considerable pain in her back and was found have slightly elevated troponin levels. She has been having workup with medicine and cardiology service and has been cleared of any acute cardiac event. She has been followed closely with medicine and cardiology and has been cleared for surgical intervention for vertebral biopsy and kyphoplasty. With her worsening pain they wished to progress with surgery as soon as possible and she was able to hold her blood thinners and be cleared for surgical intervention today. We discussed various treatment options including surgery, and the patient wishes to proceed with surgery We discussed the risk, patient's alternatives and benefits of surgery including but not limited to, risk of bleeding risk of infection, risk of need for further surgery, risk of decreased , loss of motion, loss of function, cement extravasation, nerve damage, paralysis, heart attack, blindness and . OPERATIVE SUMMARY After discussing all the risks, patient alternatives and benefits at length, the patient elected to proceed with surgical intervention, signed informed consent, and presented for their procedure. The patient was seen and examined in the preoperative holding area and the surgical site was marked. The patient was given antibiotics and brought to the operating room. The patient was sedated and intubated by anesthesia in standard fashion. The patient was positioned on to the operating room table in a prone position on the appropriate well-padded and well molded bilateral chest rolls. We were careful to pad any bony prominences and pressure points. We were careful to maintain the patient's cervical spine and good neutral alignment and position throughout. We used 2 C-arm machines to establish biplanar fluoroscopic guidance in AP and lateral positions. We were able to localize the fractures appropriately at both T12 and L1. The patient was prepped and draped in a normal standard fashion. An appropriate timeout and keystone protocol performed. We were able to proceed with the surgery. The local wound area was infiltrated with local anesthetic. An incision was made over the lateral aspect of the pedicle over the appropriate levels with a small 2 mm stab incision on the right side at T12 and L1. Intraoperative fluoroscopy was taken which showed a marker at the appropriate level. With the appropriate level positively confirmed, I was able to position a sharp trocar over the lateral aspect of the pedicle first at T12 and then at L1. As able to advance the trocar into the pedicle and into the posterior aspect of vertebral body being careful to avoid penetration cephalad caudad or medially. The trocar was placed appropriately into the posterior aspect of vertebral body at the appropriate levels. This was confirmed with C- arm guidance. With the trocar intact I was then able to take a bone biopsy with a biopsy punch or a bony drill. The biopsy specimen was passed off to be sent to pathology in formalin. I was then able to place the kyphoplasty balloon within the vertebral body. The position was checked on C-arm. I was able to inflate the balloon under low pressure and visualization with C-arm. The balloon was well enclosed within the vertebral body. The cement was prepared. With the cement at appropriate working condition the balloons were deflated and removed. I was able to place bony cement with trocar with the cement delivery device under low pressure. It had good fill within the vertebral body at each level of T12 and L1 with approximately 4/2 mL at each level. There is no evidence of any extravasation of the cement posteriorly toward the canal. The cement was well contained at the appropriate levels. The cement was allowed to cure appropriately. The trochars removed and final images were taken on C-arm. This showed the cement at the appropriate levels. We were able to proceed with closure. The wound was cleaned and dried and dressed with the appropriate dressing. The drapes were broken down. The patient was gently rolled back onto their hospital bed being careful to maintain their cervical spine and good neutral alignment and position. They were woken up by anesthesia, extubated, and brought to the recovery room in good stable condition. The patient will be admitted to the hospital for observation and for appropriate postoperative care, medical management and monitoring. We will continue to follow them closely about the postoperative course.
[2017-02-08 17:25] LABS: Glucose,Whole Blood 141 mg/dL (75-99)
[2017-02-08] MEDS: LACTOBACILLUS ACIDOPH & BULGAR 1 EACH PACKET PO SCH (19:41)
[2017-02-08 20:30] LABS: Glucose,Whole Blood 175 mg/dL (75-99)
--- NOTE | 2017-02-08 20:36 | FL ---
EXAMINATION TYPE: FL guidance operating room DATE OF EXAM: 02/08/2017 FLUOROSCOPY Fluoroscopy time of 1.03 minutes was used during T12 and L1 kyphoplasty. 2 image/s document/s the pr caroline.
[2017-02-09] MEDS: ATORVASTATIN 10 MG TAB PO SCH ×2 (00:40→20:38)
[2017-02-09] MEDS: LATANOPROST 0.005% OPHTH DROPS 2.5 ML BTL BOTH EYES SCH ×2 (00:41→21:20)
[2017-02-09] MEDS: DONEPEZIL 10 MG TAB PO SCH ×2 (00:41→21:20)
[2017-02-09] MEDS: MEMANTINE 10 MG TAB PO SCH ×4 (00:41→20:39)
[2017-02-09] MEDS: diphenhydrAMINE 50 MG CAP PO SCH ×2 (00:41→20:39)
[2017-02-09] MEDS: ceFAZolin 2 GM in SODIUM CHLORIDE 0.9% 100 ML IVPB SCH ×2 (01:32→08:34)
[2017-02-09] MEDS: HYDROcodone/APAP 5-325MG 1 EACH TAB PO PRN (03:20)
[2017-02-09 07:17] LABS: Glucose,Whole Blood 139 mg/dL (75-99)
[2017-02-09] MEDS: SODIUM CHLORIDE 0.9% 1,000 ML IV SCH ×2 (07:35→15:38)
[2017-02-09] MEDS: LACTATED RINGERS 1,000 ML IV SCH (07:35)
[2017-02-09 08:23] LABS: Anisocytosis Slight; Basophils % (A) 0 %; CHCM 30.1; Eosinophils # (A) 0.1 k/uL (0-0.7); Eosinophils % (A) 1 %; HCT 31.8 % (34.0-46.0); HDW 3.15; HGB 9.8 gm/dL (11.4-16.0); Hypochromasia Marked; Luc # (Auto) 0.14; Luc % (Auto) 1; Lymphocytes # (A) 0.9 k/uL (1.0-4.8); Lymphocytes % (A) 7 %; MCH 27.7 pg (25.0-35.0); MCHC 30.8 g/dL (31.0-37.0); MCV 89.8 fL (80.0-100.0); Mean Platelet Volume 7.5; Monocytes # (A) 0.5 k/uL (0-1.0); Monocytes % (A) 4 %; Neutrophils # (A) 10.7 k/uL (1.3-7.7); Neutrophils % (A) 87 %; RBC 3.54 m/uL (3.80-5.40); WBC 12.3 k/uL (3.8-10.6); WBC (Perox) 12.61
[2017-02-09] MEDS: AMIODARONE 100 MG TAB PO SCH ×2 (08:34→08:46)
[2017-02-09] MEDS: LEVOTHYROXINE 125 MCG TAB PO SCH ×2 (08:34→08:46)
[2017-02-09] MEDS: APIXABAN 2.5 MG TABLET PO SCH ×3 (08:35→20:38)
[2017-02-09] MEDS: ASPIRIN 81 MG CHEW PO SCH ×2 (08:35→08:46)
[2017-02-09] MEDS: METOPROLOL SUCCINATE (ER) 25 MG TAB.ER.24H PO SCH ×2 (08:36→08:46)
[2017-02-09] MEDS: FUROSEMIDE 40 MG TAB PO SCH ×2 (08:36→08:46)
[2017-02-09] MEDS: MULTIVITAMINS, THERA 1 EACH TAB PO SCH ×2 (08:36→08:46)
[2017-02-09] MEDS: PANTOPRAZOLE 40 MG/10 ML VIAL IVP SCH (08:36)
[2017-02-09] MEDS: SERTRALINE 100 MG TAB PO SCH ×2 (08:37→08:46)
[2017-02-09] MEDS: SPIRONOLACTONE 25 MG TAB PO SCH ×2 (08:37→08:46)
[2017-02-09] MEDS ORDERED: CYANOCOBALAMIN 500 MCG TAB PO SCH (09:00)
--- NOTE | 2017-02-09 09:10 | P.PN ---
Progress Note - Text Postoperative day #1 Patient is seen and examined today at bedside. She is answering some questions but not very cooperative with her history or exam. She says that her back still hurting. She says she has not had significant relief thus far. she denies any nausea and vomiting Physical Exam Afebrile with stable vital signs Abdomen is soft nontender. Chest has good excursion deep and space expiration The incision site is clean dry and intact. No erythema there is no purulence. There is no significant drainage at the site Extremities have not had neurologic change from prior to surgery. She has sustained dorsal flexion plantarflexion Calves and thighs were soft nontender without evidence of DVT. Assessment/Plan Postoperative day #1 status post T 12 and L1 kyphoplasty. We did perform a biopsy as routine for her but I fully expect that this is an osteoporotic compression fracture Patient is progressing as slowly thus far from the surgery. She has some history of dementia and it is difficult to fully ascertain her status but she seems to be having some continued pain. We'll try to control this with medications. The site appears to be healing appropriately and the surgery did not have any palpitations. We will continue to increase the patient's mobilization with therapy. We will continue pain control with oral or IV medications. We'll continue to follow patient closely. It is okay from a orthopedic standpoint for the patient to be discharged to intermediate when she is cleared with medicine
[2017-02-09] MEDS: HYDROcodone/APAP 10-325MG 1 EACH TAB PO PRN (11:16)
[2017-02-09 12:20] LABS: Glucose,Whole Blood 187 mg/dL (75-99)
[2017-02-09 17:09] LABS: Glucose,Whole Blood 178 mg/dL (75-99)
[2017-02-09] MEDS: LEVOFLOXACIN 250 MG TAB PO SCH (18:08)
[2017-02-09] MEDS: LACTOBACILLUS ACIDOPH & BULGAR 1 EACH PACKET PO SCH (18:08)
[2017-02-09] MEDS: ONDANSETRON 4 MG/2 ML VIAL IVP PRN (18:40)
[2017-02-09 20:55] LABS: Glucose,Whole Blood 236 mg/dL (75-99)
[2017-02-10] MEDS: LEVOTHYROXINE 125 MCG TAB PO SCH (06:23)
[2017-02-10 07:17] LABS: Glucose,Whole Blood 161 mg/dL (75-99)
[2017-02-10 07:18] LABS: Anisocytosis Slight; CH 26.9; CHCM 29.9; HCT 32.7 % (34.0-46.0); HDW 3.18; HGB 10.1 gm/dL (11.4-16.0); Hypochromasia Marked; MCH 27.8 pg (25.0-35.0); MCHC 30.9 g/dL (31.0-37.0); Mean Platelet Volume 7.8; RBC 3.64 m/uL (3.80-5.40); RDW 17.4 % (11.5-15.5); WBC 15.7 k/uL (3.8-10.6); WBC (Perox) 15.56
[2017-02-10 07:40] VITALS: RESP 20
[2017-02-10] MEDS: METOPROLOL SUCCINATE (ER) 25 MG TAB.ER.24H PO SCH (08:10)
[2017-02-10] MEDS: PANTOPRAZOLE 40 MG/10 ML VIAL IVP SCH (08:10)
[2017-02-10] MEDS: SERTRALINE 100 MG TAB PO SCH (08:10)
[2017-02-10] MEDS: MULTIVITAMINS, THERA 1 EACH TAB PO SCH (08:10)
[2017-02-10] MEDS: MEMANTINE 10 MG TAB PO SCH (08:11)
[2017-02-10] MEDS: ASPIRIN 81 MG CHEW PO SCH (08:11)
[2017-02-10] MEDS: FUROSEMIDE 40 MG TAB PO SCH (08:11)
[2017-02-10] MEDS: AMIODARONE 100 MG TAB PO SCH (08:12)
[2017-02-10] MEDS: SPIRONOLACTONE 25 MG TAB PO SCH (08:12)
[2017-02-10] MEDS: APIXABAN 2.5 MG TABLET PO SCH (08:12)
[2017-02-10] MEDS: SODIUM CHLORIDE 0.9% 1,000 ML IV SCH (08:13)
[2017-02-10 09:08] LABS: Add Differential Manual Differential
--- NOTE | 2017-02-10 09:14 | P.PN ---
Progress Note - Text Orthopedic Spine Patient is a 81-year-old female who is seen at the bedside following T12 and L1 kyphoplasty with biopsy performed Monday.. Patient states they are doing ok postsurgically. He is unsure she's had significant change in her thoracolumbar pain postsurgically. She does not complain of any lower extremity radiculopathy or weakness bilaterally. Currently does not complain of nausea, vomiting, fever, or chills. Patient states pain has been adequately controlled. Patient is eating and voiding freely without difficulty. She is playing to be discharged to [facility] for rehabilitation. Nursing states Dr. Tariq Strange will prescribe pain medication at discharge. Physical Exam: Status post surgical day number 2 Patient is awake, alert, and oriented 3 Vital signs stable Good chest excursion with deep inspiration and expiration Abdomen soft nontender Examination of thoracolumbar spine reveals skin is intact with no abrasions, lacerations, or bruises; no erythema, purulence or signs of infection No pain with palpation along the thoracolumbar junction Dorsiflexion, plantarflexion, and extensor hallucis longus positive sustained bilaterally Lower extremity strength 5/5 bilaterally No signs or symptoms of DVT; no calf pain No pain with internal and external rotation of the hips bilaterally Neurovascularly intact Tegaderm and nonstick Telfa dressing is clean, dry, and intact; no erythema, purulence, or signs of infection Assessment: T12 and L1 kyphoplasty and biopsy Thoracolumbar pain Plan: 1. Ambulate as tolerated; work with Physical Therapy; voiding excessive lumbar flexion, extension, rotation, and side bending; no heavy lifting; no lifting greater than 10 pounds 2. Continue Pain control with oral medications 3. Medical management can continue to manage patient for patient's other medical issues 4. From an orthopedic spine standpoint, patient is now cleared for discharge 5. Patient can follow-up with Oscar Valdez PA-C or Dr. Bashir Garcia at [facility] in 2-3 weeks following discharge
[2017-02-10 09:32] LABS: Band Neutrophils % 0.5 %; Nucleated Red Blood Cells 0 /100 WBC (0-0); Total Cells Counted 200
[2017-02-10] MEDS: HYDROcodone/APAP 10-325MG 1 EACH TAB PO PRN ×2 (11:11→17:21)
[2017-02-10 11:38] VITALS: BMI 31.4
[2017-02-10 12:01] LABS: Glucose,Whole Blood 185 mg/dL (75-99)
[2017-02-10 15:05] VITALS: BP 116/56; PULSE 67; TEMP 97.6
--- NOTE | 2017-02-10 15:13 | DS ---
DATE OF ADMISSION: 02/05/2017 DATE OF DISCHARGE: 02/10/2017 CONSULTANTS: 1. Dr. Garcia. 2. Dr. Gina Diamond. DISCHARGE MEDICATIONS AND PLAN: Medications include: 1. Cordarone 100 mg daily. 2. Aspirin 81 daily. 3. Lipitor 10 daily. 4. Cepacol lozenges as needed. 5. Obion 10-325 one q.6. 6. Levaquin 250 q.48 hours for a total of 7 more days. 7. Metoprolol 75 mg 1 in the a.m. 8. Restoril 50 mg q.h.s. 9. Dilantin eye drops to both eyes. 10. Multivitamin once daily. 11. Zoloft 100 once daily. 12. Nitroglycerine p.r.n. sublingual. 13. Spironolactone 25 mg daily. 14. Lasix 40 mg daily. 15. Requip 2 mg at bedtime. 16. Flonase nasal spray as directed. 17. Benadryl 50 mg at bedtime. 18. Vitamin B12. 19. Eliquis 2.5 b.i.d. 20. Synthroid 125 mcg 1 daily. 21. Vitamin B complex vitamin. 22. Namenda XR 28 mg 1 daily. 23. Xanax 0.25 p.r.n. anxiety. She is to follow up with Orthopedics in 2 weeks and follow up with myself in 2 weeks. Patient may shower with a Tegaderm dressing intact. She is going to transferred to rehabilitation center. HOSPITAL COURSE: Patient is a pleasant 81-year-old debilitated white female who is admitted on 02/05/2017. She apparently suffered an acute back injury and sustained a vertebral fracture of the T12 with an anterior compression. She is complaining of severe intractable back pain radiating to her abdomen. There is a retrolisthesis of the L1, L2 initially. Patient had elevated troponin in the devine area and she also has a urinary tract infection. She is subsequently admitted and worked up. It was decided that we can hold the Eliquis for 2 days and do surgery while she is in the hospital. She underwent kyphoplasty procedure and did very well. However, with her decompensation and weakness and multiple comorbidities, it is felt patient should be followed in an extended care facility, rehab facility. FINAL DIAGNOSES: 1. Severe intractable back pain with compression fracture at T12. 2. Grade 1 retrolisthesis at the L1-L2 and L2-L3. 3. Chronic kidney disease stage III. 4. Stable coronary artery disease. 5. Urinary tract infection. 6. Leukocytosis secondary to all the above. 7. Atrial fibrillation. 8. History of dementia. 9. Diabetes type 2. 10. Pulmonary embolism history. PLAN: Discharge as above with progressive rehabilitation and hopes of returning home. Patient is cleared for discharge. ANTONINAD
[2017-02-10] MEDS: LACTOBACILLUS ACIDOPH & BULGAR 1 EACH PACKET PO SCH (18:05)
[2017-02-11] MEDS ORDERED: PANTOPRAZOLE 40 MG TABLET PO SCH (07:30)
[2017-02-11] MEDS ORDERED: CYANOCOBALAMIN 500 MCG TAB PO SCH (09:00)
== END 2017-02-10 19:01 | DRG 478 ==
LOC: EC 10:08 → 6SEL 14:00 → 5ONC 02-08 15:20
PROVIDERS: ADMIT Family Medicine; ATTEND Family Medicine
PROC: 0PS43ZZ Reposition Thoracic Vertebra, Percutaneous Approach (ICD-10-PCS; 2017-02-08)
PROC: 0PU43JZ Supplement Thoracic Vertebra with Synthetic Substitute, Percutaneous Approach (ICD-10-PCS; 2017-02-08)
PROC: 0QS03ZZ Reposition Lumbar Vertebra, Percutaneous Approach (ICD-10-PCS; 2017-02-08)
PROC: 0QU03JZ Supplement Lumbar Vertebra with Synthetic Substitute, Percutaneous Approach (ICD-10-PCS; 2017-02-08)
PROC: 0PB43ZX Excision of Thoracic Vertebra, Percutaneous Approach, Diagnostic (ICD-10-PCS; 2017-02-08)
PROC: 0QB03ZX Excision of Lumbar Vertebra, Percutaneous Approach, Diagnostic (ICD-10-PCS; principal; 2017-02-08 13:50)
DX: M80.88XA Other osteoporosis with current pathological fracture, vertebra(e), initial encounter for fracture (principal); N17.9 Acute kidney failure, unspecified; E11.22 Type 2 diabetes mellitus with diabetic chronic kidney disease; R13.10 Dysphagia, unspecified; N39.0 Urinary tract infection, site not specified; F03.90 Unspecified dementia, unspecified severity, without behavioral disturbance, psychotic disturbance, mood disturbance, and anxiety; I48.0 Paroxysmal atrial fibrillation; I12.9 Hypertensive chronic kidney disease with stage 1 through stage 4 chronic kidney disease, or unspecified chronic kidney disease; G25.81 Restless legs syndrome; F32.9 Major depressive disorder, single episode, unspecified; N18.3 Chronic kidney disease, stage 3 (moderate); M43.16 Spondylolisthesis, lumbar region; G89.29 Other chronic pain; E03.9 Hypothyroidism, unspecified; M19.91 Primary osteoarthritis, unspecified site; H40.9 Unspecified glaucoma; F41.9 Anxiety disorder, unspecified; E78.5 Hyperlipidemia, unspecified; I25.10 Atherosclerotic heart disease of native coronary artery without angina pectoris; Z87.891 Personal history of nicotine dependence; Z90.49 Acquired absence of other specified parts of digestive tract; Z98.49 Cataract extraction status, unspecified eye; Z86.711 Personal history of pulmonary embolism; Z79.01 Long term (current) use of anticoagulants; Z79.899 Other long term (current) drug therapy; Z88.9 Allergy status to unspecified drugs, medicaments and biological substances
CPT/HCPCS: 36415; 72100; 74000; 80048; 80053; 81001; 82150; 82550; 82553; 83690; 83735; 84439; 84443; 84484; 85025; 85610; 85730; 86850; 86900; 86901; 87040; 87086; 88307; 88311; 93005; 93306; 94760; 96374; 96375; 99285

== ENCOUNTER 2017-02-11 14:11 | Emergency (ER) | payer MEDICARE ==
[2017-02-11 14:26] VITALS: PULSE 0; RESP 0
--- NOTE | 2017-02-11 18:26 | ED ---
General Adult HPI - General Chief complaint: Cardiac Arrest/CPR Stated complaint: unresponsive Time Seen by Provider: 02/11/17 14:11 Source: family, EMS, RN notes reviewed, old records reviewed Mode of arrival: EMS Limitations: altered mental status - History of Present Illness Initial comments: This is a 81-year-old female with multiple medical problems who is [facility] in [facility] after being found be unresponsive with a bradycardic rhythm. The patient was initially thought to be a full code and was brought in priority 1. She was found to be bradycardic with a heart rate in the 30s a pacemaker was done and improved to the 70s. She still remained with difficulty breathing and minimal evidence of pulses apparently. Upon arrival the patient was found to be with agonal respirations and apparent agonal heart rhythm. The patient is daughter was present at the time and states the patient's request was for no CPR and no prolonged life support efforts. - Related Data Home Medications Medication Instructions Recorded Confirmed Latanoprost Ophth [Xalatan 0.005%] 1 drop BOTH EYES HS 06/17/14 02/11/17 Multivitamins, Thera [Multivitamin 1 tab PO AC-SUPPER 06/17/14 02/11/17 (formulary)] Nitroglycerin Sl Tabs [Nitrostat] 0.4 mg SUBLINGUAL Q5M PRN 05/13/15 02/11/17 Furosemide [Lasix] 40 mg PO DAILY 05/26/15 02/11/17 Spironolactone [Aldactone] 25 mg PO AC-SUPPER 05/26/15 02/11/17 rOPINIRole HCL [Requip] 2 mg PO HS 05/26/15 02/11/17 Apixaban [Eliquis] 2.5 mg PO BID 11/24/16 02/11/17 Cyanocobalamin (Vitamin B-12) 1,000 mcg PO SUTUTH 11/24/16 02/11/17 [Vitamin B-12] Cyanocobalamin (Vitamin B-12) 500 mcg PO SA 11/24/16 02/11/17 [Vitamin B-12] Fluticasone Nasal [place] [Flonase 2 spr EA NOSTRIL DAILY PRN 11/24/16 02/11/17 Nasal [place]] L.acidoph,Paracasei, B.lactis 1 cap PO AC-SUPPER 11/24/16 02/11/17 [Probiotic] Levothyroxine Sodium [Synthroid] 125 mcg PO DAILY 11/24/16 02/11/17 Rivastigmine Tartrate [Exelon] 6 mg PO BID 11/24/16 02/11/17 diphenhydrAMINE [Benadryl] 50 mg PO HS 11/24/16 02/11/17 Memantine HCl [Namenda Xr] 28 mg PO DAILY 01/20/17 02/11/17 Previous Rx's Medication Instructions Recorded Sertraline [Zoloft] 100 mg PO QAM #30 tab 04/04/15 ALPRAZolam [Xanax] 0.25 mg PO HS PRN #30 02/10/17 Amiodarone [Cordarone] 100 mg PO DAILY tab 02/10/17 Aspirin 81 mg PO DAILY 02/10/17 Atorvastatin [Lipitor] 10 mg PO HS tab 02/10/17 Benzocaine/Menthol Lozeng [Cepacol 1 each MUCOUS MEM Q4HR PRN lozenge 02/10/17 lozenge] HYDROcodone/APAP 10-325MG [Goodrich 1 each PO Q6H PRN #60 tab 02/10/17 10-325] Levofloxacin [Levaquin] 250 mg PO Q48H #4 tablet 02/10/17 Metoprolol Succinate (ER) [Toprol 75 mg PO QAM tab 02/10/17 XL] Temazepam [Restoril] 15 mg PO HS PRN #30 cap 02/10/17 Allergies Allergy/AdvReac Type Severity Reaction Status Date / Time ELASTIC Allergy BINDS/CUTS Uncoded 02/11/17 14:23 INTO SKIN Review of Systems ROS Statement: Those systems with pertinent positive or pertinent negative responses have been documented in the HPI. Limitations: ROS unobtainable due to patients medical condition Past Medical History Past Medical History: Atrial Fibrillation, Coronary Artery Disease (CAD), Cancer , Dementia, Diabetes Mellitus, Eye Disorder, GI Bleed, Hyperlipidemia, Hypertension, Osteoarthritis (OA), Pulmonary Embolus (PE), Thyroid Disorder Additional Past Medical History / Comment(s): 03-26-15 ADMITTED WITH AFIB RVR. OTHER HX: AUG/2012 PULMONARY EMBOLISM, Feb UPPER GI BLEED TAKEN OFF COUMADIN, 1997 R breast ca TX WITH RADIATION. GLAUCOMA BILATERAL EYES, RLS. hypothyroid. History of Any Multi-Drug Resistant Organisms: None Reported Past Surgical History: Breast Surgery, Cholecystectomy, Heart Catheterization, Orthopedic Surgery Additional Past Surgical History / Comment(s): CURRENTYLY HAVING DIFFICULTY SWALLOWING,1973 AND 1976 GANGLION CYST REMOVED L WRIST, 1976 R FOOT BONE SPUR REMOVAL, left heart catheterization in 2012 with 30-40% stenosis of the RCA and LAD, transesophageal echogram 2006, right breast biopsy 2009, cataract surgery 2009, last colonoscopy was in 2011. Past Anesthesia/Blood Transfusion Reactions: No Reported Reaction Additional Past Anesthesia/Blood Transfusion Reaction / Comment(s): PT HAD BLOOD TRANSFUSION WHEN SHE HAD A UPPER GI BLEED IN 2013. Past Psychological History: Depression Smoking Status: Former smoker - Past Family History Father Family Medical History: Coronary Artery Disease (CAD), Myocardial Infarction (OR ) Additional Family Medical History / Comment(s): FATHER AT AGE 72 OF OR. Mother Family Medical History: Cancer Additional Family Medical History / Comment(s): MOTHER AT AGE 76 OF UTERINE CANCER. Sister(s) Family Medical History: GERD/Reflux Brother(s) Family Medical History: Diabetes Mellitus Daughter(s) Family Medical History: No Reported History Son(s) Family Medical History: No Reported History General Exam - General Exam Comments Initial Comments: This is a well-developed well-nourished unresponsive patient she did demonstrate agonal respiratory efforts and was pulseless upon arrival. Limitations: altered mental status General appearance: other (Unresponsive) Head exam: Present: atraumatic, normocephalic, normal inspection Eye exam: Present: other (Pupils were fixed and dilated at about 4 mm) Neck exam: Present: normal inspection. Absent: tenderness, meningismus, lymphadenopathy Respiratory exam: Present: other (Agonal respiratory efforts with no apparent air exchange) Cardiovascular Exam: Present: other (Pulseless) GI/Abdominal exam: Present: soft, normal bowel sounds. Absent: distended, tenderness, guarding, rebound, rigid Rectal exam: Present: deferred Extremities exam: Present: normal inspection. Absent: normal capillary refill Back exam: Present: normal inspection Neurological exam: Present: other (Unresponsive) Psychiatric exam: Present: other (Unresponsive) Skin exam: Present: pallor Course Vital Signs 02/11/17 02/11/17 14:24 16:33 Pulse Rate 0 L 0 L Respiratory 0 L 0 L Rate Medical Decision Making - Medical Decision Making After discussion with family members patient was status was established to be no code no recessive efforts. The patient was apneic and pulseless. I did pass the patient at 1418 p.m. I did discuss the case with multiple family members. I did discuss case the medical lab specialist's office patient is released. Disposition Clinical Impression: Sudden cardiac Disposition: Referrals: Tariq Strange DO [Primary Care Provider] - 1-2 days Preliminary Cause of : Sudden cardiac
[2017-02-12 15:11] LABS: Glucose,Whole Blood 115 mg/dL (75-99)
== END 2017-02-11 16:25 | disposition expired ==
LOC: EC 14:11
DX: I46.9 Cardiac arrest, cause unspecified (principal); F03.90 Unspecified dementia, unspecified severity, without behavioral disturbance, psychotic disturbance, mood disturbance, and anxiety; E03.9 Hypothyroidism, unspecified; Z85.3 Personal history of malignant neoplasm of breast; Z86.711 Personal history of pulmonary embolism; Z87.891 Personal history of nicotine dependence; Z91.048 Other nonmedicinal substance allergy status; Z79.02 Long term (current) use of antithrombotics/antiplatelets; Z79.899 Other long term (current) drug therapy
CPT/HCPCS: 36415; 99285